=== PATIENT | male | born 1970 | race Caucasian/White ===

== ENCOUNTER → 2024-04-19 | Outpatient (CLI) | payer OTHER, SELFPAY ==
[2024-04-19 15:23] LABS: Absolute Lymphocyte Count 2.31 X10^3/uL (0.83-4.51); Basophil# 0.03 X10^3/uL; Basophil% 0.4 % (0-1); Eosinophil# 0.11 X10^3/uL; Eosinophils% 1.4 % (0-5); Hemoglobin 15.4 g/dL (13.0-16.5); Lymphocyte # 2.31 X10^3/ul (0.83-4.51); Lymphocyte % 28.8 % (19-41); Mean Corp Hgb Conc 34.2 g/dL (32-36); Mean Corpuscular Hgb 32.5 pg (27.0-32.0); Mean Corpuscular Volume 94.9 fL (80-94); Mean Platelet Vol. 8.9 fl (6.2-12.0); Monocyte# 0.53 X10^3/uL; Monocyte% 6.6 % (0-10); NRBC Flagged by Analyzer 0 % (0-5); Neutrophil # 5.01 X10^3/uL (2.7-7.7); Neutrophil % 62.6 % (47-70); Platelet Count 324 K/mm3 (150-450); RBC Distribution Width CV 11.7 % (11.6-14.6); RBC Distribution Width SD 40.7 fl (35.1-43.9); Red Blood Count 4.74 M/mm3 (4.6-6.2)
[2024-04-19 15:27] LABS: Erythrocyte Sedimentation Rate 3 mm/hr (0-20)
[2024-04-19 15:42] LABS: Urine Sodium 39 mmol/L (Not Establ.)
[2024-04-19 15:53] LABS: Vitamin B12 538 pg/mL (211-911)
[2024-04-19 15:59] LABS: CRP < 2.90 mg/L (0.0-3.0); Magnesium 2.1 mg/dL (1.6-2.6); Phosphorus 3.4 mg/dL (2.5-4.9)
[2024-04-19 16:41] LABS: Urine Chloride 48 mmol/L (Not Establ.); Urine Potassium 29.7 mmol/L (Not Establ.)
[2024-04-25 15:09] LABS: Anti-Centromere B Ab <0.2 AI (0.0-0.9); Anti-Chromatin <0.2 AI (0.0-0.9); Anti-Jo <0.2 AI (0.0-0.9); Anti-Scleroderma-70 AB <0.2 AI (0.0-0.9); Anti-dsDNA Ab <1 IU/mL (0-9); Beef <0.10 kU/L (Class 0); Chocolate <0.10 kU/L (Class 0); Codfish <0.10 kU/L (Class 0); Corn <0.10 kU/L (Class 0); Egg, Whole <0.10 kU/L (Class 0); Milk (Cow) <0.10 kU/L (Class 0); Mussels <0.10 kU/L (Class 0); Peanut <0.10 kU/L (Class 0); Pork <0.10 kU/L (Class 0); RNP Ab 0.2 AI (0.0-0.9); SJOGREN'S Anti-SS-A test < 0.2 AI (0.0-0.9); SJOGREN'S Anti-SS-B test < 0.2 AI (0.0-0.9); Salmon <0.10 kU/L (Class 0); Shrimp <0.10 kU/L (Class 0); Smith Ab <0.2 AI (0.0-0.9); Soybean <0.10 kU/L (Class 0); Tuna <0.10 kU/L (Class 0); Vitamin D 1,25-Dihydroxy 45.5 pg/mL (24.8-81.5); Wheat <0.10 kU/L (Class 0)
[2024-04-26 10:09] LABS: ACCA 16 units (0-90); ALCA 7 units (0-60); AMCA 4 units (0-100); Anti-Parietal Cell AB, QN 1.3 Units (0.0-20.0); Chromogranin A 148.4 ng/mL (0.0-101.8); Cytoplasmic Ab (C-ANCA) <1:20 titer (Neg:<1:20); Endomysial Antibody IgA Negative (Negative); Gastrin, Serum 66 pg/mL (0-115); Immunoglobulin A 278 mg/dL (90-386); Immunoglobulin E 92 IU/mL (6-495); Immunoglobulin G 863 mg/dL (603-1613); Immunoglobulin M 35 mg/dL (20-172); Intrinsic Factor Ab 1.1 AU/mL (0.0-1.1); Perinuclear Ab (P-ANCA) <1:20 titer (Neg:<1:20); gASCA 5 units (0-50); t-Transglutaminase IgA <2 U/mL (0-3)
== END | disposition home or self-care (01) ==
LOC: LAB 14:32
PROVIDERS: PCP Nurse Practitioner Family; Referring Provider Internal Medicine Gastroenterology; Visit Provider Internal Medicine Gastroenterology
DX: K21.9 Gastro-esophageal reflux disease without esophagitis (principal)
CPT/HCPCS: 36415; 82436; 82607; 82652; 82784; 82785; 82941; 83516; 83735; 84100; 84133; 84300; 85025; 85652; 86003; 86005; 86036; 86140; 86225; 86235; 86255; 86256; 86316; 86340; 86671

== ENCOUNTER 2024-05-22 11:57 | Day surgery (SDC) | payer OTHER, SELFPAY ==
[2024-05-22] VITALS (9 sets, daily range): BP systolic 100–132; BP diastolic 70–83; PULSE 71–90; RESP 16–20; TEMP 36.6–36.9; O2SAT 91–100; BMI 27.5
--- NOTE | 2024-05-22 | IMM_PTH ---
PATHOLOGY RESULTS PATIENT: MARLEN THURMAN LOC: EN U#:[id number] AGE/SX: 53/M ROOM: RE05/22/[address]: Dr. Fabián Degroot DO : 1970 BED: DIS: 05/22/2024 SPEC #: [id number] RECD: 05/24/24 10:40 STATUS: SOHAM REQ #: [id number] RONNA: 05/22/24 00:[address]: Fabián Degroot DEPT: IMMUNOHISTOCHEMISTRY RECD BY: Catarino Perdomo ENTERED: 05/24/24 10:41 SP TYPE: IMMUNO OTHR DR: Arabella Guidry, RODEO RIDER-C Tissues: Esophagus, NOS Procedures: P53 (initial) KI-67 (add) PHYSICIAN & INSTITUTION [place] [address] SPECIMEN INFORMATION: Tissue Source: Distal esophagus biopsy Clinical Info: GERD Specimen Number: [id number] CPT code: 48528,90676 METHODOLOGY: Deparaffinized sections of prefer/formalin-fixed tissue or PAP/DQ stained slides are incubated with monoclonal/polyclonal antibodies/oligonucleotide probes. Localization is made via biotin free immunoperoxidase method. Appropriate controls are performed and reacted as expected. Results on target cell population are indicated in the following table: RESULTS: ANTIBODY / CLONE RESULT P53 (DO-7) positive, wild type Ki-67 (30-9) positive, low These tests were developed and their performance characteristics determined by [facility]. They may not have been cleared or approved by the [place]. Food and Drug Administration. The FDA has determined that such clearance or approval is not necessary. The above immunohistochemical/dualISH markers are ordered and reviewed by the Pathologist. INTERPRETATION: Distal esophagus, biopsy: No evidence of dysplasia. 05/24/2024
--- NOTE | 2024-05-22 12:52 | PRE.ANES_ITS ---
ASA Classification* ASA Classification ASA Classification: 2 Assessment & Plan Anesthesia* Anesthesia Assessment Anesthesia Assessment: Discussed sedation and/or anesthesia options, risks, benefits, and alternatives with patient/parents/legal guardian/POA. Questions invited. The patient/parents/legal guardian/POA seems to understand and agrees to proceed with anesthesia plan. Reviewed the physical assessment, medical history, allergy history and patient home medications list prior to surgery/procedure/anesthetic and documented any changes. Performed airway and anesthesia risk assessments. Anesthesia Type Anesthesia Type: MAC History Source History Obtained from:: Patient and Chart Anesthesia Focused Assessment* Temperature: 97.8 F Pulse Rate: 77 Blood Pressure: 132/83 Respiratory Rate: 18 Pulse Ox: 100 Oxygen Delivery Method: Room Air Airway Assessment Mouth opens: >3 cm Mallampati Score: I Teeth Condition: Partial (Patient has UPPER partial. He will take it out.) Neck Range of motion (ROM): Full ROM Focused Labs Anesthesia Preop lab: CBC WBC 8.0 K/mm3 (4.4-11.0) 04/19/24 14:36 RBC 4.74 M/mm3 (4.6-6.2) 04/19/24 14:36 Hgb 15.4 g/dL (13.0-16.5) 04/19/24 14:36 Hct 45.0 % (40-54) 04/19/24 14:36 Plt Count 324 K/mm3 (150-450) 04/19/24 14:36 CHEMISTRY Potassium 3.9 mmol/L (3.5-5.1) 07/08/15 13:20 Sodium 141 mmol/L (136-145) 07/08/15 13:20 Magnesium 2.1 mg/dL (1.6-2.6) 04/19/24 14:36 Phosphorus 3.4 mg/dL (2.5-4.9) 04/19/24 14:36 BUN 12 mg/dL (7-18) 07/08/15 13:20 Creatinine 1.09 mg/dL (0.70-1.30) 07/08/15 13:20 Glucose 113 mg/dL (70-110) H 07/08/15 13:20 COAG Pre-Assessment Diagnosis/Proposed Procedure Planned Operative Procedure(s): EGD W/ PH PROBE Anesthesia History Anesthesia History - patient registration representative: Anesthesia History - patient registration representative Hx Hospitalization No 04/29/24 12:44 Any Problems With Anesthesia No 04/29/24 12:44 Cholinesterase deficiency No 04/29/24 12:44 You/Your Family Experience fever (hyperthermia) with Relationship Recent Exposure to Contagious No 05/22/24 12:32 Disease Does patient have nerve No 04/29/24 12:44 stimulator Patient instructed to have device shut off --Does patient have Pacemaker No 05/22/24 12:32 or ICD? When Was Last Pacemaker Check QUESTION #4 FULL TEXT: You/Your Family Experience fever (hyperthermia) with Anesthesia Last Oral Intake Last Oral intake: Last Oral Intake NPO since Meds taken in AM with sips of water? Meds patient instructed to take am of surgery Any additional information?: Yes NPO since: 00:00 Meds taken in AM with sips of water?: Yes Meds patient instructed to take am of surgery: duloxitine PONV PONV - patient registration representative: PONV - patient registration representative Female No 04/29/24 12:44 HX of Motion Sickness No 04/29/24 12:44 HX of N/V After Surgery No 04/29/24 12:44 Non-Smoker Yes 04/29/24 12:44 Duration of Surgery greater No 04/29/24 12:44 than 60 minutes Number of Risk Factors 1 04/29/24 12:44 PONV Score Low Risk 04/29/24 12:44 Height & Weight Height & Weight: Anesthesia: Height & Weight Height 6 ft 05/22/24 12:32 Weight: 92 kg 05/22/24 12:32 Body Mass Index (BMI) 27.5 05/22/24 12:32 Respiratory Assessment Respiratory Assessment - patient registration representative: Respiratory Tract Infection Hx - patient registration representative Hx Respiratory Tract Infection No 04/29/24 12:44 STOP Sleep Apnea STOP Sleep Apnea - patient registration representative: STOP Sleep Apnea - patient registration representative Hx Hypertension Yes: CONTROLLED ON MED 04/29/24 12:44 Hx Sleep Apnea Yes 04/29/24 12:44 CPAP Yes 04/29/24 12:44 BIPAP No 04/29/24 12:44 Do you snore loudly (louder than talking or can be heard Do you often feel tired/ fatigued/ sleepy during daytime? Has anyone observed you stop breathing during sleep? STOP Results Positive 04/29/24 12:44 QUESTION #5 FULL TEXT : Do you snore loudly (louder than talking or can be heard through closed doors)? Tobacco Use History Tobacco Use History - patient registration representative: Tobacco Use History - patient registration representative Tobacco Use Smoking Status Former smoker 04/29/24 12:44 Hx Tobacco Use No 04/29/24 12:44 Years Smoking Packs Smoked per Day Smoking Cessation Date was Yes - quit smoking within 15 04/29/24 12:44 within the last 15 years years Hx Smoking Cessation Date Hx Smoking Cessation Counseling Hematologic Medial History Hematologic Hx - patient registration representative: Hematologic Medical Hx - contract specialist Hx of Blood Transfusion Yes 04/29/24 12:44 Hx of Transfusion in last 3 No 04/29/24 12:44 Months Date of Last Transfusion (if within last 3 months) Ever experience any problems No 04/29/24 12:44 with transfusion(s)? Specify any problems Hx of Preganancy in last 3 N/A 04/29/24 12:44 Months Nurse Filling Out Transfusion VCHRISTIN 04/29/24 12:44 & Questions: Date: 04/29/24 04/29/24 12:44 Time: 12:45 04/29/24 12:44 Patient unable to answer at this time (ie. confused, unrespo /Reproduction History /Reproductive History - patient registration representative: /Reproductive Hx- patient registration representative Hx Now Gestational Age (in weeks): EDC: Hx Hx Para Hx Section SAB PFSH Medical History Wears partial dentures Wears glasses Depression Anxiety Alcohol use High cholesterol Back pain Injury of back History of ulceration Gastric reflux Former smoker CPAP (continuous positive airway pressure) dependence Sleep apnea Asthma Hypertension History of echocardiogram History of stress test Cardiology follow-up encounter COVID-19 Essential hypertension Over weight Hyperlipidemia Positional sleep apnea Environmental and seasonal allergies Allergy-induced asthma Ontiveros's esophagus without dysplasia Ontiveros's esophagus determined by biopsy Chest tightness Hematuria, microscopic Excessive sweating Pre-diabetes Nodule of right lung Exertional shortness of breath Atypical chest pain Home Medications ?Medication ?Instructions ?Recorded ?Last Taken ?Type albuterol sulfate 90 mcg/actuation 2 puff inhalation Q4H PRN 09/08/22 Unknown History aerosol inhaler (Proventil HFA) shortness of breath or wheezing atorvastatin 10 mg tablet 10 mg PO DAILY 09/08/22 Unknown History autopap OTHER 09/08/22 Unknown History cyanocobalamin (vitamin B-12) 500 500 mcg PO DAILY 09/08/22 Unknown History mcg tablet losartan 100 mg tablet 100 mg PO DAILY 09/08/22 Unknown History multivitamin 1 tab PO DAILY 09/08/22 Unknown History amlodipine 2.5 mg tablet 2.5 mg PO DAILY 03/28/24 Unknown History magnesium oxide 400 mg (241.3 mg 400 mg PO BID 03/28/24 Unknown History magnesium) tablet potassium chloride 20 mEq 20 meq PO DAILY 03/28/24 Unknown History tablet,extended release fluoxetine 10 mg capsule 15 mg PO QDAY 04/19/24 05/22/24 History cholecalciferol (vitamin D3) 25 25 mcg PO DAILY 04/29/24 Unknown History mcg (1,000 unit) capsule (Vitamin D3) fluticasone 232 mcg-salmeterol 14 1 inh inhalation BID 04/29/24 Unknown History mcg/actuation breath activated powdr pantoprazole 20 mg tablet,delayed 20 mg PO DAILY 04/29/24 05/16/24 History release vitamin E 268 mg (400 unit) capsule 268 mg PO DAILY 04/29/24 Unknown History Allergy/AdvReac Type Severity Reaction Status Date / Time shrimp Allergy Unknown Other Verified 05/22/24 12:09 codeine AdvReac Other Verified 05/22/24 12:09 lisinopril AdvReac cough Verified 05/22/24 12:09 Family History Grandmother Heart disease Grandfather Heart disease Father Hypertension Cancer Brother Asthma Mother Diabetes Colon cancer Sister Cancer Brother Cancer Surgical History History of lumpectomy History of back surgery History of vocal cord polypectomy H/O epididymectomy Scrotal hematoma Social History Smoking Status: Former smoker alcohol intake: current alcohol intake frequency: holidays/special occasions only substance use type: does not use caffeine: Yes Type: carbonated beverages and coffee Addt'l Information Additional Findings: Patient is occasionally slow to wake up from anesthesia. Review of Systems (Anesthesia) ROS Narrative System reviewed and no additional complaints, except as documented.
--- OUTSIDE RECORDS SUMMARY | 2024-05-22 12:56 | XMS RPT_ITS | CCD ---
Author Organization [facility] CliniSytn Care Team Providers Care Taxonomist Name Role Phone SELF, SELF Referring Unavailable LIANNA MALLORY Attending Unavailable PAULO, ARABELLA Consulting Unavailable PAULO, ARABELLA Admitting Unavailable PAULO, ARABELLA Attending Unavailable PAULO, ARABELLA Primary Care Unavailable PROVIDER, UNKNOWN Consulting Unavailable PAULO, ARABELLA Attending Unavailable PAULO, ARABELLA Admitting Unavailable PAULO, ARABELLA Consulting Unavailable PAULO, ARABELLA Primary Care Unavailable PROVIDER, UNKNOWN Consulting Unavailable PAULO, ARABELLA Attending Unavailable PAULO, ARABELLA Admitting Unavailable PAULO, ARABELLA Consulting Unavailable PALUO, ARABELLA Primary Care Unavailable PROVIDER, UNKNOWN Consulting Unavailable PAULO, ARABELLA Consulting Unavailable PAULO, ARABELLA Admitting Unavailable PAULO, ARABELLA Primary Care Unavailable PAULO, ARABELLA Attending Unavailable PROVIDER, UNKNOWN Consulting Unavailable PAULO, ARABELLA Consulting Unavailable PAULO, ARABELLA Admitting Unavailable PAULO, ARABELLA Attending Unavailable PAULO, ARABELLA Primary Care Unavailable PROVIDER, UNKNOWN Consulting Unavailable MONIQUE REA Attending Unavailable RONA, MONIQUE Admitting Unavailable PAULO, ARABELLA Consulting Unavailable VIVIANE HERNANDEZ DO Referring Unavailable REA, MOINQUE Primary Care Unavailable PROVIDER, UNKNOWN Consulting Unavailable PAULO, ARABELLA Attending Unavailable PAULO, ARABELLA Consulting Unavailable PAULO, ARABELLA Admitting Unavailable PAULO, ARABELLA Primary Care Unavailable PROVIDER, UNKNOWN Consulting Unavailable PATTI SUKHWINDER T Attending Unavailable PATTI, SUKHWINDER T Admitting Unavailable PAULO, ARABELLA Consulting Unavailable PATTI, SUKHWINDER T Primary Care Unavailable PROVIDER, UNKNOWN Consulting Unavailable PAULO, ARABELLA Consulting Unavailable АНДРЕЙ DICKEY MD Attending Unavailable АНДРЕЙ DICKEY MD Admitting Unavailable PAULO, ARABELLA Referring Unavailable АНДРЕЙ DICKEY MD Primary Care Unavailable PROVIDER, UNKNOWN Consulting Unavailable FRIEND, TAVO Admitting Unavailable FRIEND, TAVO Primary Care Unavailable PAULO, ARABELLA Consulting Unavailable FRIEND, TAVO Attending Unavailable PROVIDER, UNKNOWN Consulting Unavailable PAULO, ARABELLA Consulting Unavailable PAUOL, ARABELLA Attending Unavailable PAULO, ARABELLA Admitting Unavailable PAULO, ARABELLA Primary Care Unavailable PROVIDER, UNKNOWN Consulting Unavailable PAULO, ARABELLA Consulting Unavailable PAULO, ARABELLA Attending Unavailable PAULO, ARABELLA Admitting Unavailable PAULO, ARABELLA Primary Care Unavailable PROVIDER, UNKNOWN Consulting Unavailable PAULO, ARABELLA Attending Unavailable PAULO, ARABELLA Admitting Unavailable PAULO, ARABELLA Consulting Unavailable PAULO, ARABELLA Primary Care Unavailable PROVIDER, UNKNOWN Consulting Unavailable PAULO, ARABELLA Attending Unavailable PAULO, ARABELLA Admitting Unavailable PAULO, ARABELLA Consulting Unavailable PAULO, ARABELLA Primary Care Unavailable PROVIDER, UNKNOWN Consulting Unavailable PAULO, ARABELLA Consulting Unavailable PAULO, ARABELLA Admitting Unavailable PAULO, ARABELLA Primary Care Unavailable PAULO, ARABELLA Attending Unavailable PROVIDER, UNKNOWN Consulting Unavailable PAULO, ARABELLA Attending Unavailable PAULO, ARABELLA Admitting Unavailable PAULO, ARABELLA Consulting Unavailable PAULO, ARABELLA Primary Care Unavailable PROVIDER, UNKNOWN Consulting Unavailable PAULO, ARABELLA Consulting Unavailable PAULO, ARABELLA Admitting Unavailable PAULO, ARABELLA Primary Care Unavailable PAULO, ARABELLA Attending Unavailable PROVIDER, UNKNOWN Consulting Unavailable PAULO, ARABELLA Consulting Unavailable PUALO, ARABELLA Admitting Unavailable PAULO, ARABELLA Attending Unavailable PAULO, ARABELLA Primary Care Unavailable PROVIDER, UNKNOWN Consulting Unavailable Allergies Allergy Classification Reported Allergen(s) Allergy Type Date of Onset Reaction(s) Facility (1 source) Codeine Drug Allergy [facility] Repository (1 source) Shrimp product; Translations: [SHRIMP] Food allergy (disorder) [facility] Repository Problems Active Problems Problem Classification Problem Date Documented Da te Episodic/Chronic Disorders of lipid metabolism (1 source) Hyperlipidemia, unspecified; Translations: [Hyperlipidemia, unspecified] Onset: 12-29-2023 Chronic Esophageal disorders (4 sources) Ontiveros's esophagus without dysplasia; Translations: [Ontiveros's esophagus without dysplasia] Onset: 03-02-2024 Chronic Essential hypertension (1 source) Essential (primary) hypertension; Translations: [Essential (primary) hypertension] Onset: 04-08-2024 Chronic Fluid and electrolyte disorders (4 sources) Hypokalemia; Translations: [Hypokalemia] Onset: 03-07-2024 Episodic Malaise and fatigue (3 sources) Other fatigue; Translations: [Other fatigue] Onset: 04-08-2024 Episodic Other aftercare (4 sources) Other longterm (current) drug therapy; Translations: [Other longterm (current) drug therapy] Onset: 03-01-2024 Episodic Other connective tissue disease (1 source) Cramp and spasm; Translations: [Cramp and spasm] Onset: 04-08-2024 Episodic Other lower respiratory disease (1 source) Shortness of breath; Translations: [Shortness of breath] Onset: 04-08-2024 Episodic Other nutritional; endocrine; and metabolic disorders (4 sources) Hypomagnesemia; Translations: [Hypomagnesemia] Onset: 03-07-2024 Chronic Other screening for suspected conditions (not mental disorders or infectious disease) (5 sources) Encounter for screening for nutritional disorder; Translations: [Encounter for screening for malignant neoplasm of prostate] Onset: 12-29-2023 Episodic Residual codes; unclassified (2 sources) Family history of carrier of genetic disease; Translations: [Family history of carrier of genetic disease] Onset: 06-13-2023 Episodic Unclassified (1 source) Other specified cough; Translations: [Other specified cough] Onset: 04-08-2024 Past or Other Problems Problem Classification Problem Date Documented Da te Episodic/Chronic Diabetes mellitus without complication (1 source) Prediabetes; Translations: [Prediabetes] Onset: 12-29-2023 Episodic Results Test Name Value Interpretation Reference Range Facility CATECHOLAMINES,FRACTIONATED, URINE [CCL]on 05-20-2024 Catecholamines, UrineInterp See Note Normal [facility] Comment on above: Result Comment: TEST INFORMATION: Catecholamines Fractionated, Urine Free Smaller increases in catecholamine concentrations (less than two times the upper limit) usually are the result of physiological stimuli, drugs, or improper specimen collection. Significant elevation of one or more catecholamines (three or more times the upper reference limit) is associated with an increased probability of a neuroendocrine tumor. Access complete set of age- and/or gender-specific reference intervals for this test in the [employer] [facility] Test Directory ([employer]). This test was developed and its performance characteristics determined by [facility]. It has not been cleared or approved by the US Food and Drug Administration. This test was performed in a CLIA certified laboratory and [place] [address] Paramjit Smith III, M.D. [id number] Performed By: #### 2 93218 #### [facility],[address] [place], [place] [address] Creatinine Ur, per 24h 2010 mg/d Normal 800-2100 [facility] Comment on above: Result Comment: Perf ormed By: [facility] [address] [place] [address] Aggregate Conveyor Operator: Arun Bowman MD, PhD IA Number: [id number] Performed By: #### 2 08892 #### [facility],[address] [place] [address]5984 Creatinine Ur, per volume 67 mg/dL Normal [facility] Comment on above: Performed By: #### 2 10881 #### [facility],[address] [place] [address] 68996 Dopamine, Urine per 24hour 54 ug/d Low 71-485 [facility] Comment on above: Result Comment: REFE RENCE INTERVAL: Dopamine, Urine - ug/d Access complete set of age- and/or gender-specific reference intervals for this test in the [employer] [facility] Test Directory ([employer]). Performed By: #### 2 64067 #### [facility],[address] [place] [address] 95845 Dopamine, Urine pervolume 18 ug/L Normal [facility] Comment on above: Performed By: #### 2 40263 #### [facility],[address] [place] [address] 73540 Dopamine, Urine ratio toCRT 27 ug/g AUDIO VISUAL COLLECTIONS COORDINATOR Normal 0-250 [facility] Comment on above: Performed By: #### 2 15393 #### [facility],[address] [place] [address] 14174 Epinephrine, Urine wye20um <3 Normal 1-14 [facility] Comment on above: Result Comment: REFE RENCE INTERVAL: Epinephrine, Urine - ug/d Access complete set of age- and/or gender-specific reference intervals for this test in the [employer] [facility] Test Directory ([employer]). Performed By: #### 2 71089 #### [facility],[address] [place] [address] 00527 Epinephrine, Urine pervolume <1 Normal [facility] Comment on above: Performed By: #### 2 67756 #### [facility],[address] [place] [address] 64240 Epinephrine, Urine ratioto AUDIO VISUAL COLLECTIONS COORDINATOR <1 Normal 0-20 [facility] Comment on above: Performed By: #### 2 03956 #### [facility],[address] [place] [address] Hours Collected 24 hr Normal [facility] Comment on above: Result Comment: Per 24h calculations are provided to aid interpretation for collections with a duration of 24 hours and an average daily urine volume. For specimens with notable deviations in collection time or volume, ratios of analytes to a corresponding urine creatinine concentration may assist in result interpretation. Performed By: #### 2 82388 #### [facility],[address] [place] [address] Norepinephrine, Urineper 24hr 30 ug/d Normal 14-120 [facility] Comment on above: Result Comment: REFE RENCE INTERVAL: Norepinephrine, Urine - ug/d Access complete set of age- and/or gender-specific reference intervals for this test in the [employer] [facility] Test Directory ([employer]). Performed By: #### 2 73653 #### [facility],[address] [place], [place] [address] Norepinephrine, Urineper volume 10 ug/L Normal [facility] Comment on above: Performed By: #### 2 38072 #### [facility],[address] [place], [place] [address] Norepinephrine, Urineratio to AUDIO VISUAL COLLECTIONS COORDINATOR 15 ug/g AUDIO VISUAL COLLECTIONS COORDINATOR Normal 0-45 [facility] Comment on above: Performed By: #### 2 64220 #### [facility],[address] [place], [place] [address] Total Volume 3000 mL Normal [facility] Comment on above: Performed By: #### 2 55652 #### [facility],[address] [place], [place] [address] OPERATIVE PROCEDURESon 10-10 -2024 OPERATIVE PROCEDURES [facility] OPERATIVE REPORT NAME ACCOUNT SEX AGE ADMIT DISCHARGE PT MED. RECORD# NUMBER DATE DATE TYPE GUY POTTS [id number] M 53 05/06/24 2 [id number] ROOM: [facility] DATE OF : 1970 DICTATING PHYSICIAN: Monique Rea DATE OF SURGERY: May 06, 2024 SURGEON: Monique Rea MD PRINCIPAL ARCHITECT: Anton Michaels, Magnetic Tester ANESTHESIOLOGIST: Yesenia Denson CRNA ANESTHETIC: Local anesthesia, 35 mL of 0.25% Marcaine with epinephrine. PREOPERATIVE DIAGNOSIS: POSTOPERATIVE DIAGNOSIS: Acute appendicitis and adhesions. OPERATION PERFORMED: COMPLICATIONS: ESTIMATED BLOOD LOSS: 5 mL. FLUIDS GIVEN: 1300 mL of crystalloid. SPECIMEN: Vermiform appendix, sent to Pathology. DISPOSITION: Stable to recovery. INDICATIONS: Guy Potts is a 53-year-old gentleman [facility], and on physical exam he has peritoneal signs. Laboratory evaluation shows a white blood cell count elevation with a left shift on differential, and CT showed what appeared to be appendicitis. DESCRIPTION OF OPERATION: After informed consent, intravenous fluids, and antibiotics, he was brought to the operating room, placed on the table in the supine position with adequate padding at pressure points. The patient was given anesthesia, prepped and draped in the usual sterile fashion. The abdomen was palpated, demarcated, and locally anesthetized at the trocar sites, and Page 1 of 2 GUY POTTS Operative Report GUY POTTS : 1970 then placed into mild Trendelenburg and rotated to the left. The infraumbilical trocar was placed with good visualization. The suprapubic and left lower quadrant trocars were placed with good visualization through the anesthetized sites. The area of the vermiform appendix was markedly edematous, erythematous, indurated, and there was some fibrinous exudate in this area, but I could not find any signs of leakage. This area was copiously irrigated with warm antibiotic solution, and then the base of the vermiform appendix grasped, and this area was elevated. Then the mesoappendiceal vessels were exposed. Additional adhesions were lysed around this area, and eventually the base of the vermiform appendix was exposed, cross-clamped, held for 1 minute and then the stapling/cutting device was fired. This transected the base of the vermiform appendix nicely. Then, the mesoappendiceal vessels were placed with multiple positioning into the stapling/cutting device, which was clamped, held for 1 minute with each stapling session, and then fired, and there was good hemostasis. The vermiform appendix was placed in an EndoCatch bag and placed to the side. The area around the vermiform appendix was carefully irrigated with antibiotic solution, suctioned, and checked for good hemostasis. The EndoCatch bag was removed through the infraumbilical port, the trocar repositioned, and the appendiceal site irrigated with antibiotic solution, checked for excellent hemostasis, and the cul-de-sac was suctioned and irrigated with antibiotic solution as well. After suctioning the irrigant and checking for good hemostasis, the trocars were removed with good visualization. The infraumbilical fascial edges were nicely approximated with #1 Vicryl, the deeper layers approximated with inverted interrupted #1 Vicryl. Skin edges were all nicely approximated with inverted interrupted 2-0 PDS through subcutaneous and subcuticular layers followed by Benzoin, Steri-Strips, and sterile dressings. When the patient was more awake and alert, he was sent to the recovery room in good condition. The case will be discussed with the patient and his spouse when he is more awake and alert. Pathology will be followed in my office. Dictated By: Monique Rea MD 05/06/24 14:16 JOB #: [id number] Transcribed By: am 05/06/24 14:55 Electronically signed by: E-Sign Dr. Monique Rea MD 05/09/24 21:28 Page 2 of 2 GUY POTTS Operative Report Normal [facility] Final Surgical Pathology Rep [facility] 05-08-2024 Final Surgical Pathology Report . Pathology Reports Accession: Collected Date/Time: Received Date/Time: Pathologist: [id number] 05/06/2024 12:30 EDT 05/07/2024 09:24 EDT AILEEN GRAY MD Final Surgical Pathology Report DIAGNOSIS: APPENDIX: - ACUTE APPENDICITIS WITH SEROSITIS COMMENT: [facility] [id number] CLINICAL INFORMATION: ACUTE APPENDICITIS SPECIMEN: A APPENDIX GROSS DESCRIPTION: All parts labelled with patient name and [id number] Received in formalin labelled appendix Dimensions- 8.5 x 2.8 x 1.6 cm Serosal surface- is lópez-pink with vascular congestion, jovel-white exudate and attached yellow mesoappendix Lumen- contains hemorrhagic material, fecaliths also identified. Section closest to margin inked black Wall thickness- 0.1 to 0.2 cm. RS-1 Janell Jennings, Grossing Meter Readers Supervisor/ Dr. Jorge Wills, Pathologist Performed by Janell Jennings MICROSCOPIC DESCRIPTION: The microscopic examination is performed, except in the case of Gross Only. Electronically Signed by Pathology Report verified by [facility] AILEEN GRAY Sign out Date: 05/08/2024 09:58 Performing Lab: [facility], [address] [place] [address] Pathology Dept Disclaimer If ancillary studies were utilized, the following Laboratory Developed Test (LDT) disclaimer will apply: Under CLIA requirements, [facility] Pathology Laboratory is qualified to perform high complexity testing. For all ancillary stains, positive and negative controls stain appropriately. Performance characteristics of immunohistochemical and chromogenic in-situ hybridization tests have been determined by [facility] Pathology Laboratory. These tests are used for clinical purposes, They should not be regarded as investigational or for research. Normal [facility] C-REACTIVE PROTEINon 024 CRP 3.37 mg/dl High 0.00 - 0.90 [facility] Comment on above: Performed By: #### 2 56017 #### [facility],[address] [place] [address] 30182 CBC + DIFFon 05-06-2024 Baso # 0.03 x10EE3/UL Normal 0.00 - 0.10 [facility] Comment on above: Performed By: #### 2 48520 #### [facility],[address] [place] [address] 59028 Basophils/100 WBC (Bld) 0.2 % Normal 0.0 - 2.0 [facility] Comment on above: Performed By: #### 2 16645 #### [facility],[address] [place] [address] 04396 CBC + DIFF Normal [facility] Comment on above: Result Comment: CBC- COMPLETE BLOOD COUNT Performed By: #### 2 66494 #### [address] [address] EO # 0.06 x10EE3/UL Normal 0.00 - 0.50 [facility] Comment on above: Performed By: #### 2 71204 #### [place] [address] Eosinophils/100 WBC (Bld) 0.4 % Normal 0.0 - 7.0 [facility] Comment on above: Performed By: #### 2 15734 #### [place] [address] Erythrocyte distribution width (RBC) [Ratio] 12.3 % Normal 12.0 - 15.6 [facility] Comment on above: Performed By: #### 2 11126 #### [place] [address] Hematocrit (Bld) [Volume fraction] 44.0 % Normal 40.0 - 52.0 [facility] Comment on above: Performed By: #### 2 12237 #### [place] [address] Hemoglobin (Bld) [Mass/Vol] 15.3 g/dL Normal 13.0 - 17.5 [facility] Comment on above: Performed By: #### 2 69271 #### [place] [id number] Lymph # 1.04 x10EE3/UL Normal 0.80 - 2.80 [facility] Comment on above: Performed By: #### 2 18580 #### [place] [id number] Lymphocytes/100 WBC (Bld) 7.0 % Low 20.0 - 45.0 [facility] Comment on above: Performed By: #### 2 49477 #### [address],[place] [address] MANUAL DIFF N/A Normal [facility] Comment on above: Performed By: #### 2 74584 #### [facility],[address] [place] [address] MCH (RBC) [Entitic mass] 33 pg Normal 27 - 33 [facility] Comment on above: Performed By: #### 2 41616 #### [facility],[address] [place] [address] MCHC 35 X10 3 Normal 32 - 36 [facility] Comment on above: Performed By: #### 2 35692 #### [place] [address] MCV (RBC) [Entitic vol] 95 fL Normal 81 - 98 [facility] Comment on above: Performed By: #### 2 45759 #### [facility],[address] [place] [address] Real # 0.89 x10EE3/UL Normal 0.20 - 1.00 [facility] Comment on above: Performed By: #### 2 19635 #### [facility],[address] [place] [address] MONOS % 6.0 % Normal 0.0 - 10.0 [facility] Comment on above: Performed By: #### 2 32788 #### [facility],[address] [place] [address] Morphology Gamal (Bld) [Interp] N/A Normal [facility] Comment on above: Performed By: #### 2 17138 #### [place] [address] Neut # 12.87 x10EE3/UL High 1.50 - 7.10 [facility] Comment on above: Performed By: #### 2 69234 #### [place] [address] Neutrophils/100 WBC (Bld) 86.4 % High 46.0 - 76.0 [facility] Comment on above: Performed By: #### 2 87453 #### [facility],[address] [place] [address] 02766 PLATELET 323 x10EE3/UL Normal 150 - 450 [facility] Comment on above: Performed By: #### 2 78762 #### [facility],[address] [place] [address] 63106 Platelet mean volume (Bld) [Entitic vol] 7.3 fL Normal 6.4 - 10.5 [facility] Comment on above: Result Comment: AUTO MATED DIFFERENTIAL Performed By: #### 2 41098 #### [facility],[address] [place] [address] 29687 RBC 4.62 x 10EE6/UL Normal 4.50 - 6.00 [facility] Comment on above: Performed By: #### 2 18860 #### [facility],[address] [place] [address] 62664 WBC 14.9 x 10EE3/UL High 4.5 - 10.8 [facility] Comment on above: Performed By: #### 2 31324 #### [facility],[address] [place] [address] 89860 CMP with eGFRon 05-06-2024 AGE 53 years Normal [facility] Comment on above: Performed By: #### 2 57661 #### [facility],[address] [place] [address] 98314 Albumin [Mass/Vol] 3.9 g/dL Normal 3.4 - 5.0 [facility] Comment on above: Performed By: #### 2 02758 #### [facility],[address] [place] [address] 25308 Albumin/Globulin [Mass ratio] 1.0 {ratio} Normal 0.9 - 1.6 [facility] Comment on above: Performed By: #### 2 21623 #### [facility],[address] [place] [address] 28300 ALK PHOS 89 U/L Normal 46 - 116 [facility] Comment on above: Performed By: #### 2 07127 #### [facility],[address] [place] [address] 20019 ALT [Catalytic activity/Vol] 38 U/L Normal 16 - 63 [facility] Comment on above: Performed By: #### 2 40833 #### [facility],[address] [place] [address] 57186 Anion gap [Moles/Vol] 14 mmol/L Normal 10 - 20 [facility] Comment on above: Performed By: #### 2 72874 #### [facility],[address] [place] [address] 37587 AST [Catalytic activity/Vol] 25 U/L Normal 15 - 37 [facility] Comment on above: Performed By: #### 2 88734 #### [facility],[address] [place] [address] 38451 B/C RATIO 13 ratio Normal 0 - 30 [facility] Comment on above: Performed By: #### 2 42529 #### [facility],[address] [place] [address] 12579 Bilirubin [Mass/Vol] 0.6 mg/dL Normal 0.2 - 1.0 [facility] Comment on above: Performed By: #### 2 39864 #### [facility],[address] [place] [address] 66389 Calcium [Mass/Vol] 9.7 mg/dL Normal 8.5 - 10.1 [facility] Comment on above: Performed By: #### 2 12778 #### [facility],[address] [place] [address] 74373 Chloride [Moles/Vol] 103 mmol/L Normal 98 - 107 [facility] Comment on above: Performed By: #### 2 09314 #### [facility],[address] [place] [address] 47987 CMP with eGFR Normal [facility] Comment on above: Result Comment: COMP REHENSIVE METABOLIC PANEL Performed By: #### 2 20061 #### [facility],[address] [place] [address] 24635 CO2 [Moles/Vol] 28.2 mmol/L Normal 21.0 - 32.0 [facility] Comment on above: Performed By: #### 2 62319 #### [facility],[address] [place] [address] Creatinine [Mass/Vol] 1.17 mg/dL Normal 0.70 - 1.30 [facility] Comment on above: Performed By: #### 2 32792 #### [facility],[address] [place] [address] GFR/1.73 sq M.predicted among non-blacks MDRD (S/P/Bld) [Vol rate/Area] mL/min/{1.73_m2} Normal 60 - 999 [facility] Comment on above: Performed By: #### 2 99018 #### [facility],[address] [place] [address] Result Comment: ACCO RDING TO THE NATIONAL KIDNEY DISEASE EDUCATION PROGRAM(NKDE), A NORMAL eGFR IS A VALUE GREATER THAN OR EQUAL TO 60 ML/MIN/1.73 SQ METERS. CHRONIC KIDNEY DISEASE: <60mL/MIN/1.73 SQ METERS KIDNEY FAILURE: <15mL/MIN/1.73 SQ METERS THIS TEST SHOULD ONLY BE USED FOR PATIENTS 18 YEARS OF AGE AND OLDER. Globulin (S) [Mass/Vol] 3.9 g/dL High 1.5 - 3.8 [facility] Comment on above: Performed By: #### 2 51637 #### [facility],[address] [place] [address] 51201 Glucose [Mass/Vol] 151 mg/dL High 74 - 106 [facility] Comment on above: Performed By: #### 2 00838 #### [facility],[address] [place] [address] 23750 Potassium [Moles/Vol] 4.0 mmol/L Normal 3.5 - 5.1 [facility] Comment on above: Performed By: #### 2 79594 #### [facility],[address] [place] [address] 13265 Protein [Mass/Vol] 7.8 g/dL Normal 6.4 - 8.2 [facility] Comment on above: Performed By: #### 2 26591 #### [facility],[address] [place] [address] 85753 Sodium [Moles/Vol] 141 mmol/L Normal 136 - 145 [facility] Comment on above: Performed By: #### 2 10351 #### [facility],[address] [place] [address] 01285 Urea nitrogen [Mass/Vol] 15 mg/dL Normal 7 - 18 [facility] Comment on above: Performed By: #### 2 23308 #### [facility],[address] [place] [address] ABDOMEN/PELVIS [facility] 2023 CT ABDOMEN/PELVIS [place] [address] Patient: GUY POTTS Phone#: : 1970 Age: 53 Gender: M Pt. Type: ER Account: [id number] Location: [facility] Ordering: VIVIANE HERNANDEZ Exam Date: 05/06/2024/6:36 Family Phys: ARABELLA BATES Charge Code: [id number] Physician: Big Stone Order #: [id number] Dose#: 16.4 PROCEDURE: CT ABDOMEN/PELVIS WITH CONTRAST COMPARISON: None. INDICATIONS: ABDOMEN PAIN TECHNIQUE: After obtaining the patient's consent, CT images were created with non-ionic intravenous contrast material. All CT scans at this facility use dose modulation, iterative reconstruction, and/or weight based dosing when appropriate to reduce radiation dose to as low as reasonably achievable. IV CONTRAST: Omnipaque 350,80ml TOTAL DOSE: 16.4 CTDIvol(mGy) FINDINGS: LIVER: Normal. No enlargement, atrophy, abnormal density, or significant focal lesion. BILIARY: Gallbladder is present PANCREAS: Normal. No lesion, fluid collection, ductal dilatation, or atrophy. SPLEEN: Normal. No enlargement or focal lesion. KIDNEYS: Kidneys enhance and excrete contrast symmetrically. No hydronephrosis. ADRENALS: Normal. No mass or enlargement. AORTA/VASCULAR: No aortic aneurysm. There are atherosclerotic calcifications of the aorta and branch vessels. RETROPERITONEUM: Normal. No mass or adenopathy. BOWEL/MESENTERY: No bowel obstruction or dilatation. No significant stool burden. There is periappendiceal stranding. There are 2 stones within the appendix. The appendix measures up to 1.3 cm. Findings consistent with acute appendicitis. No loculated fluid collection. No free air. ABDOMINAL WALL: Fat containing umbilical hernia. Fat containing bilateral inguinal hernias. URINARY BLADDER: Fluid-filled PELVIC NODES: Normal. No adenopathy. PELVIC ORGANS: Calcifications in the prostate BONES: Disc height loss L4-5. Continued Report - Page 2 of 2 Patient: GUY POTTS Phone#: : 1970 Age: 53 Gender: M Pt. Type: ER Account: [id number] Location: [facility] Ordering: VIVIANE HERNANDEZ Exam Date: 05/06/2024/6:36 Family Phys: ARABELLA BATES Charge Code: [id number] Physician: Big Stone Order #: [id number] Dose#: 16.4 LUNG BASES: Dependent changes. OTHER: Negative. CONCLUSION: 1. Acute appendicitis. Dictated by: Yudi Escobar MD on 05/06/2024 at 12:03 Approved by: Yudi Escobar MD on 05/06/2024 at 12:12 Normal [facility] LIPASEon 05-06-2024 Lipase [Catalytic activity/Vol] 31.0 U/L Normal 15.0 - 78.0 [facility] Comment on above: Result Comment: *PLE ASE NOTE THAT RANGES FOR LIPASE HAVE CHANGED OF 07/28/23 DUE TO AN ASSAY UPDATE BY THE MANAGER CHANNEL.THE NEW ASSAY RANGE IS 6-250 U/L, WITH A REFERENCE RANGE OF 16-77 U/L. Performed By: #### 2 50599 #### [facility],[address] [place] [address] 36911 URINALYSISon 05-06-2024 Amorphous NONE Normal [facility] Comment on above: Performed By: #### 2 79907 #### [facility],[address] [place], [place] [address] Bacteria TRACE Normal [facility] Comment on above: Performed By: #### 2 89399 #### [facility],[address] [place], [place] [address] Bilirubin Ql (U) Negative Normal NORMAL: NEGATIVE [facility] Comment on above: Performed By: #### 2 43442 #### [facility],[address] [place], [place] [address] Casts NONE Normal [facility] Comment on above: Performed By: #### 2 60361 #### [facility],[address] [place], [place] [address] Clarity (U) clear Normal NORMAL: CLEAR [facility] Comment on above: Performed By: #### 2 78117 #### [facility],[address] [place] [address] 55751 Color (U) p.yel Normal NORMAL: YELLOW [facility] Comment on above: Performed By: #### 2 96961 #### [facility],[address] [place] [address] 52138 Crystals LM Nom (Urine sed) NONE Normal [facility] Comment on above: Performed By: #### 2 62654 #### [facility],[address] [place] [address] 90614 Epi Cells NONE Normal [facility] Comment on above: Performed By: #### 2 21618 #### [facility],[address] [place] [address] 80268 Glucose Ql (U) NORM Normal NORMAL: NORMAL [facility] Comment on above: Performed By: #### 2 83356 #### [facility],[address] [place] [address] 34691 Hemoglobin Ql (U) 25 Abnormal NORMAL: NEGATIVE [facility] Comment on above: Performed By: #### 2 90021 #### [facility],[address] [place] [address] 23056 Ketone Negative Normal NORMAL: NEGATIVE [facility] Comment on above: Performed By: #### 2 66218 #### [facility],[address] [place] [address] 73064 Leukocytes Negative Normal NORMAL: NEGATIVE [facility] Comment on above: Performed By: #### 2 49590 #### [facility],[address] [place] [address] 98586 Mucous NONE Normal [facility] Comment on above: Performed By: #### 2 07871 #### [facility],[address] [place] [address] 44831 Nitrite Ql (U) Negative Normal NORMAL: NEGATIVE [facility] Comment on above: Performed By: #### 2 71725 #### [facility],[address] [place] [address] 87695 pH (U) 8 [pH] Normal NORMAL: 5.0-8.0 [facility] Comment on above: Performed By: #### 2 08823 #### [facility],[address] [place] [address] 52896 Protein Ql (U) Negative Normal NORMAL: NEGATIVE [facility] Comment on above: Performed By: #### 2 99588 #### [facility],[address] [place] [address] 12444 Rbc 5-10 Normal 0-3/hpf [facility] Comment on above: Performed By: #### 2 37738 #### [facility],[address] [place] [address] 60857 Sp [place] 1.015 Normal NORMAL: 1.010-1.030 [facility] Comment on above: Performed By: #### 2 37471 #### [facility],[address] [place] [address] 13907 Specimen Type Void Normal [facility] Comment on above: Performed By: #### 2 80705 #### [facility],[address] [place] [address] 45255 Urinalysis dipstick W Reflex Microscopic panel (U) SEE BELOW Normal [facility] Comment on above: Result Comment: MICR OSCOPIC Performed By: #### 2 89164 #### [facility],[address] [place] [address] 90578 Urobilinog NORM Normal NORMAL: NORMAL [facility] Comment on above: Performed By: #### 2 71380 #### [facility],[address] [place] [address] 45020 Wbc NONE Normal 0-5/hpf [facility] Comment on above: Performed By: #### 2 77298 #### [facility],[address] [place] [address] 03636 Yeast NONE Normal [facility] Comment on above: Performed By: #### 2 08174 #### [facility],[address] [place] [address] 41177 CHEST 2 VIEWSon 04-08-2024 CHEST 2 VIEWS [place] [address] Patient: GUY POTTS Phone#: : 1970 Age: 53 Gender: M Pt. Type: Out Account: [id number] Location: [facility] Ordering: ARABELLA BATES Exam Date: 04/08/2024/15:29 Family Phys: Charge Code: [id number] Physician: Big Stone Order #: [id number] Dose#: PROCEDURE: X-RAY CHEST 2 VIEWS COMPARISON: [facility], XR, CHEST 2 VIEWS, 03/20/2022, 8:19. INDICATIONS: Shortness of breath. FINDINGS: LUNGS: Normal. No significant pulmonary parenchymal abnormalities. VASCULATURE: Normal. Unremarkable pulmonary vasculature. CARDIAC: Normal. No cardiac silhouette abnormality or cardiomegaly. MEDIASTINUM: Normal. No visible mass or adenopathy. PLEURA: Normal. No effusion or pleural thickening. BONES: Normal. No fracture or visible bony lesion. OTHER: Negative. CONCLUSION: No acute disease. No significant change has occurred. Dictated by: Tracey Castro MD on 04/08/2024 at 17:13 Approved by: Tracey Castro MD on 04/08/2024 at 17:13 Normal [facility] CBC + DIFFon 03-28-2024 Baso # 0.01 x10EE3/UL Normal 0.00 - 0.10 [facility] Comment on above: Performed By: #### 2 23787 ####[facility],[address] [place], [place] [address] Basophils/100 WBC (Bld) 0.1 % Normal 0.0 - 2.0 [facility] Comment on above: Performed By: #### 2 58648 ####[facility],[address] [place] [address] CBC + DIFF Normal [facility] Comment on above: Result Comment: CBC- COMPLETE BLOOD COUNT Performed By: #### 2 65163 ####[facility],[address] [place] [address] 32930 EO # 0.17 x10EE3/UL Normal 0.00 - 0.50 [facility] Comment on above: Performed By: #### 2 72151 ####[facility],[address] [place] [address] 45953 Eosinophils/100 WBC (Bld) 2.1 % Normal 0.0 - 7.0 [facility] Comment on above: Performed By: #### 2 27086 ####[facility],[address] [place] [address] Erythrocyte distribution width (RBC) [Ratio] 11.9 % Low 12.0 - 15.6 [facility] Comment on above: Performed By: #### 2 89052 ####[facility],[address] [place] [address] 93749 Hematocrit (Bld) [Volume fraction] 42.9 % Normal 40.0 - 52.0 [facility] Comment on above: Performed By: #### 2 55942 ####[facility],[address] [place] [address] Hemoglobin (Bld) [Mass/Vol] 15.3 g/dL Normal 13.0 - 17.5 [facility] Comment on above: Performed By: #### 2 84820 ####[facility],[address] [place] [address] Lymph # 2.63 x10EE3/UL Normal 0.80 - 2.80 [facility] Comment on above: Performed By: #### 2 90774 ####[facility],[address] [place], [place] [address] Lymphocytes/100 WBC (Bld) 32.7 % Normal 20.0 - 45.0 [facility] Comment on above: Performed By: #### 2 40084 ####[facility],[address] [place] [address] 21445 MANUAL DIFF N/A Normal [facility] Comment on above: Performed By: #### 2 73690 ####[facility],[address] [place], [place] [address] MCH (RBC) [Entitic mass] 33 pg Normal 27 - 33 [facility] Comment on above: Performed By: #### 2 14672 ####[facility],[address] [place] [address] 30715 MCHC 36 X10 3 Normal 32 - 36 [facility] Comment on above: Performed By: #### 2 96824 ####[facility],[address] [place] [address] 40507 MCV (RBC) [Entitic vol] 93 fL Normal 81 - 98 [facility] Comment on above: Performed By: #### 2 85625 ####[facility],[address] [place] [address] 13357 Real # 0.62 x10EE3/UL Normal 0.20 - 1.00 [facility] Comment on above: Performed By: #### 2 06732 ####[facility],[address] [place] [address] 04826 MONOS % 7.6 % Normal 0.0 - 10.0 [facility] Comment on above: Performed By: #### 2 34003 ####[facility],[address] [place] [address] 92717 Morphology Gamal (Bld) [Interp] N/A Normal [facility] Comment on above: Performed By: #### 2 10500 ####[facility],[address] [place] [address] 71409 Neut # 4.63 x10EE3/UL Normal 1.50 - 7.10 [facility] Comment on above: Performed By: #### 2 72206 ####[facility],[address] [place] [address] 34520 Neutrophils/100 WBC (Bld) 57.5 % Normal 46.0 - 76.0 [facility] Comment on above: Performed By: #### 2 92070 ####[facility],[address] [place] [address] 99723 PLATELET 288 x10EE3/UL Normal 150 - 450 [facility] Comment on above: Performed By: #### 2 55961 ####[facility],[address] [place] [address] 86994 Platelet mean volume (Bld) [Entitic vol] 6.9 fL Normal 6.4 - 10.5 [facility] Comment on above: Result Comment: AUTO MATED DIFFERENTIAL Performed By: #### 2 16031 ####[facility],[address] [place] [address] 17333 RBC 4.61 x 10EE6/UL Normal 4.50 - 6.00 [facility] Comment on above: Performed By: #### 2 42010 ####[facility],[address] [place] [address] 24219 WBC 8.1 x 10EE3/UL Normal 4.5 - 10.8 [facility] Comment on above: Performed By: #### 2 63960 ####[facility],[address] [place] [address] 51345 CMP with eGFRon 03-28-2024 AGE 53 years Normal [facility] Comment on above: Performed By: #### 2 54872 ####[facility],[address] [place] [address] 42300 Albumin [Mass/Vol] 4.1 g/dL Normal 3.4 - 5.0 [facility] Comment on above: Performed By: #### 2 32059 ####[facility],[address] [place] [address] Albumin/Globulin [Mass ratio] 1.3 {ratio} Normal 0.9 - 1.6 [facility] Comment on above: Performed By: #### 2 25624 ####[facility],[address] [place] [address] 43932 ALK PHOS 75 U/L Normal 46 - 116 [facility] Comment on above: Performed By: #### 2 76715 ####[facility],[address] [place] [address] 46712 ALT [Catalytic activity/Vol] 55 U/L Normal 16 - 63 [facility] Comment on above: Performed By: #### 2 80258 ####[facility],[address] [place] [address] 33129 Anion gap [Moles/Vol] 15 mmol/L Normal 10 - 20 [facility] Comment on above: Performed By: #### 2 94225 ####[facility],[address] [place] [address] 70743 AST [Catalytic activity/Vol] 25 U/L Normal 15 - 37 [facility] Comment on above: Performed By: #### 2 44428 ####[facility],[address] [place] [address] B/C RATIO 11 ratio Normal 0 - 30 [facility] Comment on above: Performed By: #### 2 61186 ####[facility],[address] [place] [address] 20396 Bilirubin [Mass/Vol] 0.6 mg/dL Normal 0.2 - 1.0 [facility] Comment on above: Performed By: #### 2 48056 ####[facility],[address] [place] [address] Calcium [Mass/Vol] 9.3 mg/dL Normal 8.5 - 10.1 [facility] Comment on above: Performed By: #### 2 78620 ####[facility],[address] [place] [address] Chloride [Moles/Vol] 100 mmol/L Normal 98 - 107 [facility] Comment on above: Performed By: #### 2 77533 ####[facility],[address] [place] [address] CMP with eGFR Normal [facility] Comment on above: Result Comment: COMP REHENSIVE METABOLIC PANEL Performed By: #### 2 98927 ####[facility],[address] [place], [place] [address] CO2 [Moles/Vol] 27.4 mmol/L Normal 21.0 - 32.0 [facility] Comment on above: Performed By: #### 2 18833 ####[facility],[address] [place] [address] 56050 Creatinine [Mass/Vol] 1.13 mg/dL Normal 0.70 - 1.30 [facility] Comment on above: Performed By: #### 2 17842 ####[facility],[address] [place] [address] GFR/1.73 sq M.predicted among non-blacks MDRD (S/P/Bld) [Vol rate/Area] mL/min/{1.73_m2} Normal 60 - 999 [facility] Comment on above: Performed By: #### 2 46753 ####[facility],[address] [place] [address] Result Comment: ACCO RDING TO THE NATIONAL KIDNEY DISEASE EDUCATION PROGRAM(NKDE), A NORMAL eGFR IS A VALUE GREATER THAN OR EQUAL TO 60 ML/MIN/1.73 SQ METERS. CHRONIC KIDNEY DISEASE: <60mL/MIN/1.73 SQ METERS KIDNEY FAILURE: <15mL/MIN/1.73 SQ METERS THIS TEST SHOULD ONLY BE USED FOR PATIENTS 18 YEARS OF AGE AND OLDER. Globulin (S) [Mass/Vol] 3.1 g/dL Normal 1.5 - 3.8 [facility] Comment on above: Performed By: #### 2 63703 ####[facility],[address] [place] [address] 25843 Glucose [Mass/Vol] 91 mg/dL Normal 74 - 106 [facility] Comment on above: Performed By: #### 2 48623 ####[facility],[address] [place] [address] 44576 Potassium [Moles/Vol] 3.9 mmol/L Normal 3.5 - 5.1 [facility] Comment on above: Performed By: #### 2 10282 ####[facility],[address] [place] [address] 24885 Protein [Mass/Vol] 7.2 g/dL Normal 6.4 - 8.2 [facility] Comment on above: Performed By: #### 2 66421 ####[facility],[address] [place] [address] 79541 Sodium [Moles/Vol] 138 mmol/L Normal 136 - 145 [facility] Comment on above: Performed By: #### 2 01948 ####[facility],[address] [place] [address] 75526 Urea nitrogen [Mass/Vol] 12 mg/dL Normal 7 - 18 [facility] Comment on above: Performed By: #### 2 32989 ####[facility],[address] [place] [address] 86895 MAGNESIUMon 03-28-2024 Magnesium [Mass/Vol] 1.8 mg/dL Normal 1.8 - 2.4 [facility] Comment on above: Performed By: #### 2 69177 #### [facility],[address] [place] [address] 18364 MAGNESIUMon 03-12-2024 Magnesium [Mass/Vol] 2.1 mg/dL Normal 1.8 - 2.4 [facility] Comment on above: Performed By: #### 2 91522 #### [facility],[address] [place] [address] 73786 POTASSIUMon 03-12-2024 Potassium [Moles/Vol] 4.2 mmol/L Normal 3.5 - 5.1 [facility] Comment on above: Performed By: #### 2 82487 ####[facility],[address] [place] [address] 32061 BMP with eGFRon 03-07-2024 AGE 53 years Normal [facility] Comment on above: Performed By: #### 2 89790 ####[facility],[address] [place] [address] 14056 Anion gap [Moles/Vol] 12 mmol/L Normal 10 - 20 [facility] Comment on above: Performed By: #### 2 68755 ####[facility],[address] [place] [address] 27124 BMP with eGFR Normal [facility] Comment on above: Result Comment: BASI C METABOLIC PANEL Performed By: #### 2 24486 ####[facility],[address] [place] [address] 77412 Calcium [Mass/Vol] 9.8 mg/dL Normal 8.5 - 10.1 [facility] Comment on above: Performed By: #### 2 42101 ####[facility],[address] [place] [address] 39305 Chloride [Moles/Vol] 101 mmol/L Normal 98 - 107 [facility] Comment on above: Performed By: #### 2 66159 ####[facility],[address] [place] [address] 76567 CO2 [Moles/Vol] 29.3 mmol/L Normal 21.0 - 32.0 [facility] Comment on above: Performed By: #### 2 65445 ####[facility],[address] [place], [place] [address] Creatinine [Mass/Vol] 0.98 mg/dL Normal 0.70 - 1.30 [facility] Comment on above: Performed By: #### 2 38577 ####[facility],[address] [place], [place] [address] GFR/1.73 sq M.predicted among non-blacks MDRD (S/P/Bld) [Vol rate/Area] mL/min/{1.73_m2} Normal 60 - 999 [facility] Comment on above: Performed By: #### 2 59559 ####[facility],[address] [place] [address] 11395 Result Comment: ACCO RDING TO THE NATIONAL KIDNEY DISEASE EDUCATION PROGRAM(NKDE), A NORMAL eGFR IS A VALUE GREATER THAN OR EQUAL TO 60 ML/MIN/1.73 SQ METERS. CHRONIC KIDNEY DISEASE: <60mL/MIN/1.73 SQ METERS KIDNEY FAILURE: <15mL/MIN/1.73 SQ METERS THIS TEST SHOULD ONLY BE USED FOR PATIENTS 18 YEARS OF AGE AND OLDER. Glucose [Mass/Vol] 100 mg/dL Normal 74 - 106 [facility] Comment on above: Performed By: #### 2 09815 ####[facility],[address] [place] [address] 60927 Potassium [Moles/Vol] 3.7 mmol/L Normal 3.5 - 5.1 [facility] Comment on above: Performed By: #### 2 49181 ####[facility],[address] [place] [address] 87636 Sodium [Moles/Vol] 139 mmol/L Normal 136 - 145 [facility] Comment on above: Performed By: #### 2 98748 ####[facility],[address] [place] [address] 58910 Urea nitrogen [Mass/Vol] 17 mg/dL Normal 7 - 18 [facility] Comment on above: Performed By: #### 2 53316 ####[facility],[address] [place] [address] 96913 MAGNESIUMon 03-07-2024 Magnesium [Mass/Vol] 2.1 mg/dL Normal 1.8 - 2.4 [facility] Comment on above: Performed By: #### 2 24080 #### [facility],[address] [place] [address] 04358 MAGNESIUMon 03-05-2024 Magnesium [Mass/Vol] 0.9 mg/dL Critically low 1.8 - 2.4 [facility] Comment on above: Result Comment: { CA LLED TO @ 0432 { READ BACK BY TO TRR Performed By: #### 2 85696 #### [address] [address] PHOSPHORUSon 03-05-2024 Phosphate [Mass/Vol] 3.7 mg/dL Normal 2.6 - 4.7 [facility] Comment on above: Performed By: #### 2 33955 ####[facility],[address] [place] [address] 00788 POTASSIUMon 03-05-2024 Potassium [Moles/Vol] 3.7 mmol/L Normal 3.5 - 5.1 [facility] Comment on above: Performed By: #### 2 14724 ####[facility],[address] [place] [address] 63872 BMP with eGFRon 03-02-2024 AGE 53 years Normal [facility] Comment on above: Performed By: #### 2 92335 ####[facility],[address] [place] [address] 17967 Anion gap [Moles/Vol] 14 mmol/L Normal 10 - 20 [facility] Comment on above: Performed By: #### 2 30260 ####[facility],[address] [place] [address] 36483 BMP with eGFR Normal [facility] Comment on above: Result Comment: BASI C METABOLIC PANEL Performed By: #### 2 61599 ####[facility],[address] [place] [address] 70665 Calcium [Mass/Vol] 9.2 mg/dL Normal 8.5 - 10.1 [facility] Comment on above: Performed By: #### 2 60679 ####[facility],[address] [place] [address] 50420 Chloride [Moles/Vol] 103 mmol/L Normal 98 - 107 [facility] Comment on above: Performed By: #### 2 60453 ####[facility],[address] [place] [address] 44528 CO2 [Moles/Vol] 29.6 mmol/L Normal 21.0 - 32.0 [facility] Comment on above: Performed By: #### 2 85182 ####[facility],[address] [place] [address] 37413 Creatinine [Mass/Vol] 1.04 mg/dL Normal 0.70 - 1.30 [facility] Comment on above: Performed By: #### 2 36084 ####[facility],[address] [place] [address] 33829 GFR/1.73 sq M.predicted among non-blacks MDRD (S/P/Bld) [Vol rate/Area] mL/min/{1.73_m2} Normal 60 - 999 [facility] Comment on above: Performed By: #### 2 90629 ####[place] [address] Result Comment: ACCO RDING TO THE NATIONAL KIDNEY DISEASE EDUCATION PROGRAM(NKDE), A NORMAL eGFR IS A VALUE GREATER THAN OR EQUAL TO 60 ML/MIN/1.73 SQ METERS. CHRONIC KIDNEY DISEASE: <60mL/MIN/1.73 SQ METERS KIDNEY FAILURE: <15mL/MIN/1.73 SQ METERS THIS TEST SHOULD ONLY BE USED FOR PATIENTS 18 YEARS OF AGE AND OLDER. Glucose [Mass/Vol] 125 mg/dL High 74 - 106 [facility] Comment on above: Performed By: #### 2 52051 ####[place] [address] Sodium [Moles/Vol] 142 mmol/L Normal 136 - 145 [facility] Comment on above: Performed By: #### 2 97203 ####[place] [address] Urea nitrogen [Mass/Vol] 12 mg/dL Normal 7 - 18 [facility] Comment on above: Performed By: #### 2 66863 ####[place] [id number] EMERGENCY REPORTon 4 EMERGENCY REPORT [facility] EMERGENCY ROOM REPORT NAME ACCOUNT SEX AGE ADMIT DISCHARGE PT MED. RECORD# NUMBER DATE DATE TYPE GUY POTTS [id number] M 53 02/29/24 3 [id number] ROOM: ER DATE OF : 1970 DICTATING PHYSICIAN: Андрей Dickey HISTORY OF PRESENT ILLNESS: This is a 53-year-old gentleman who has a history of hyperlipidemia and hypertension. 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 He had blood work done at his doctors office yesterday because he has been having some diffuse muscle cramping recently. He has had problems with hypokalemia in the past and is currently on a potassium supplement. They checked his magnesium also yesterday, and it was 0.5. They called him and told him to come in for IV magnesium today. He denies any chest or abdominal pain. He has had no shortness of breath. No other neurologic complaints. PAST MEDICAL HISTORY: Past medical history is significant for the hyperlipidemia, hypertension, as well as hypokalemia. SOCIAL HISTORY: He does not smoke or drink excessively. REVIEW OF SYSTEMS: Review of systems is significant for the recent muscle cramps. He denies chest pain. He denies abdominal pain. He denies shortness of breath. All other review of systems are negative except as noted above. PHYSICAL EXAMINATION: VITAL SIGNS: Afebrile. Vital signs are stable. GENERAL EXAMINATION: The patient is alert and appears very comfortable. HEENT: Mouth and pharynx is clear. NECK: Neck is supple. CHEST: Clear. CARDIOVASCULAR EXAMINATION: Regular rate and rhythm. ABDOMEN: Soft and nontender. NEUROLOGIC EXAMINATION: Normal. DIAGNOSTIC DATA: Review of the laboratory work shows the potassium to be 3.3 and the magnesium at 0.5. MEDICAL DECISION MAKING/EMERGENCY DEPARTMENT COURSE AND TREATMENT: This is a 53-year-old gentleman with a history of hypokalemia who presents with abnormal laboratories yesterday. Differential diagnoses includes hypomagnesemia secondary to renal function, hypomagnesemia secondary to medications, hypomagnesemia secondary to environmental condition. An IV was started, and the patient was given 2 grams of magnesium IV. He was also given 400 mg of magnesium oxide p.o. The patient feels fine at this time. He is comfortable returning home. DIAGNOSIS: Acute hypomagnesemia. Page 1 of 2 [facility] Emergency Room Report [facility] GUY Priscila : 1970 PLAN/DISPOSITION: He will be placed on a magnesium supplement once a day, and he is to continue his potassium supplement and follow-up with his primary care physician. Dictated By: Андрей Dickey MD 02/29/24 11:56 JOB #: [id number] Transcribed By: am 02/29/24 11:59 Electronically signed by: Андрей Dickey M.D. 03/02/24 08:52 Page 2 of 2 [facility] Emergency Room Report Normal [facility] MAGNESIUMon 03-02-2024 Magnesium [Mass/Vol] 1.2 mg/dL Low 1.8 - 2.4 [facility] Comment on above: Performed By: #### 2 57383 #### [facility],[address] [place] [address] 11025 POTASSIUMon 03-02-2024 Potassium [Moles/Vol] 4.3 mmol/L Normal 3.5 - 5.1 [facility] Comment on above: Performed By: #### 2 40708 ####[facility],[address] [place] [address] 53912 Performed By: #### 2 28910 ####[facility],[address] [place] [address] 04024 PTH, INTACT [CCL]on 03-02-20 24 PTH, Intact 34 pg/mL Normal [facility] Comment on above: Result Comment: [facility] [address] [place] [address] Paramjit Smith III, M.D. [id number] Performed By: #### 2 10370 ####[facility],[address] [place] [address] 95486 PTH, Intact 25 pg/mL Normal [facility] Comment on above: Result Comment: [facility] [address] [place] [address] Paramjit Smith III, M.D. [id number] Performed By: #### 2 29417 ####[facility],[address] [place] [address] 82828 BMP with eGFRon 03-01-2024 AGE 53 years Normal [facility] Comment on above: Performed By: #### 2 73215 #### [facility],[address] [place] [address] 56983 Anion gap [Moles/Vol] 12 mmol/L Normal [facility] Comment on above: Performed By: #### 2 60089 #### [facility],[address] [place] [address] 82598 BMP with eGFR Normal [facility] Comment on above: Result Comment: BASI C METABOLIC PANEL Performed By: #### 2 58888 #### [facility],[address] [place] [address] 12684 Calcium [Mass/Vol] 9.8 mg/dL Normal 8.5 - 10.1 [facility] Comment on above: Performed By: #### 2 39530 #### [facility],[address] [place] [address] 49228 Chloride [Moles/Vol] 101 mmol/L Normal 98 - 107 [facility] Comment on above: Performed By: #### 2 87201 #### [facility],[address] [place] [address] 15856 CO2 [Moles/Vol] 29.7 mmol/L Normal 21.0 - 32.0 [facility] Comment on above: Performed By: #### 2 85088 #### [facility],[address] [place], [place] [address] Creatinine [Mass/Vol] 0.95 mg/dL Normal 0.70 - 1.30 [facility] Comment on above: Performed By: #### 2 53252 #### [facility],[address] [place], [place] [address] GFR/1.73 sq M.predicted among non-blacks MDRD (S/P/Bld) [Vol rate/Area] mL/min/{1.73_m2} Normal 60 - 999 [facility] Comment on above: Performed By: #### 2 48505 #### [facility],[address] [place] [address] Result Comment: ACCO RDING TO THE NATIONAL KIDNEY DISEASE EDUCATION PROGRAM(NKDE), A NORMAL eGFR IS A VALUE GREATER THAN OR EQUAL TO 60 ML/MIN/1.73 SQ METERS. CHRONIC KIDNEY DISEASE: <60mL/MIN/1.73 SQ METERS KIDNEY FAILURE: <15mL/MIN/1.73 SQ METERS THIS TEST SHOULD ONLY BE USED FOR PATIENTS 18 YEARS OF AGE AND OLDER. Glucose [Mass/Vol] 113 mg/dL High 74 - 106 [facility] Comment on above: Performed By: #### 2 04560 #### [facility],[address] [place] [address] 19337 Potassium [Moles/Vol] 4.1 mmol/L Normal 3.5 - 5.1 [facility] Comment on above: Performed By: #### 2 85431 #### [facility],[address] [place] [address] 83002 Sodium [Moles/Vol] 139 mmol/L Normal 136 - 145 [facility] Comment on above: Performed By: #### 2 98356 #### [facility],[address] [place] [address] 10860 Urea nitrogen [Mass/Vol] 14 mg/dL Normal 7 - 18 [facility] Comment on above: Performed By: #### 2 78653 #### [facility],[address] [place] [address] 66978 MAGNESIUMon 03-01-2024 Magnesium [Mass/Vol] 1.2 mg/dL Low 1.8 - 2.4 [facility] Comment on above: Performed By: #### 2 83332 ####[facility],[address] [place] [address] 74450 MAGNESIUMon 02-29-2024 Magnesium [Mass/Vol] 0.5 mg/dL Critically low 1.8 - 2.4 [facility] Comment on above: Result Comment: { CA LLED TO [place] AT 0819 NURSE NOT IN TILL 0900, WILL CALL BACK { READ BACK BY SHAWANDA IRAHETA TO [facility]WB Performed By: #### 2 10133 ####[facility],[address] [place] [address] 82934 VITAMIN B-12on 02-29-2024 Cobalamin (Vitamin B12) [Mass/Vol] 550 pg/mL Normal 193 - 986 [facility] Comment on above: Performed By: #### 2 79895 ####[facility],[address] [place] [address] 27129 VITAMIN D, 25 HYDROXYon 08-0 VitD 35.80 ng/mL Normal 30.00 - 100 [facility] Comment on above: Result Comment: 25-O HD3 indicates both endogenous production and supplementation. 25-OHD2 is an indicator of exogenous sources, such as diet or supplementation. Therapy is based on measurement of Total 25-OHD, with levels <20 ng/mL indicative of Vitamin D deficiency, while levels between 20 ng/mL and 30 ng/mL suggest insufficiency. Optimal levels are >=30ng/mL. Vitamin D, 25-OH D3 Not Established Vitamin D, 25-OH D2 Not Established Performed By: #### 2 61434 ####[facility],[address] [place] [address] 68854 BMP with eGFRon 02-28-2024 AGE 53 years Normal [facility] Comment on above: Performed By: #### 2 92191 #### [facility],[address] [place] [address] 31110 Anion gap [Moles/Vol] 11 mmol/L Normal 10 - 20 [facility] Comment on above: Performed By: #### 2 53086 #### [facility],[address] [place] [address] 19795 BMP with eGFR Normal [facility] Comment on above: Result Comment: BASI C METABOLIC PANEL Performed By: #### 2 56413 #### [facility],[address] [place] [address] 13443 Calcium [Mass/Vol] 8.8 mg/dL Normal 8.5 - 10.1 [facility] Comment on above: Performed By: #### 2 86487 #### [facility],[address] [place] [address] 78874 Chloride [Moles/Vol] 102 mmol/L Normal 98 - 107 [facility] Comment on above: Performed By: #### 2 12053 #### [facility],[address] [place] [address] 53276 CO2 [Moles/Vol] 29.9 mmol/L Normal 21.0 - 32.0 [facility] Comment on above: Performed By: #### 2 72394 #### [facility],[address] [place] [address] 04676 Creatinine [Mass/Vol] 1.01 mg/dL Normal 0.70 - 1.30 [facility] Comment on above: Performed By: #### 2 76460 #### [facility],[address] [place], [place] [address] GFR/1.73 sq M.predicted among non-blacks MDRD (S/P/Bld) [Vol rate/Area] mL/min/{1.73_m2} Normal 60 - 999 [facility] Comment on above: Performed By: #### 2 98453 #### [facility],[address] [place] [address] Result Comment: ACCO RDING TO THE NATIONAL KIDNEY DISEASE EDUCATION PROGRAM(NKDE), A NORMAL eGFR IS A VALUE GREATER THAN OR EQUAL TO 60 ML/MIN/1.73 SQ METERS. CHRONIC KIDNEY DISEASE: <60mL/MIN/1.73 SQ METERS KIDNEY FAILURE: <15mL/MIN/1.73 SQ METERS THIS TEST SHOULD ONLY BE USED FOR PATIENTS 18 YEARS OF AGE AND OLDER. Glucose [Mass/Vol] 105 mg/dL Normal 74 - 106 [facility] Comment on above: Performed By: #### 2 08514 #### [facility],[address] [place] [address] 65619 Potassium [Moles/Vol] 3.3 mmol/L Low 3.5 - 5.1 [facility] Comment on above: Performed By: #### 2 01844 #### [facility],[address] [place] [address] 82606 Sodium [Moles/Vol] 140 mmol/L Normal 136 - 145 [facility] Comment on above: Performed By: #### 2 34947 #### [facility],[address] [place] [address] 22828 Urea nitrogen [Mass/Vol] 9 mg/dL Normal 7 - 18 [facility] Comment on above: Performed By: #### 2 31236 #### [facility],[address] [place] [address] 42350 POTASSIUMon 02-12-2024 Potassium [Moles/Vol] 3.2 mmol/L Low 3.5 - 5.1 [facility] Comment on above: Performed By: #### 2 24265 #### [facility],[address] [place] [address] 67903 POTASSIUMon 01-15-2024 Potassium [Moles/Vol] 3.2 mmol/L Low 3.5 - 5.1 [facility] Comment on above: Performed By: #### 2 48677 ####[facility],[address] [place] [address] 77855 CBC + DIFFon 12-29-2023 Baso # 0.02 x10EE3/UL Normal 0.00 - 0.10 [facility] Comment on above: Performed By: #### 2 87943 ####[facility],[address] [place] [address] 21328 Basophils/100 WBC (Bld) 0.2 % Normal 0.0 - 2.0 [facility] Comment on above: Performed By: #### 2 56473 ####[facility],[address] [place] [address] 27465 CBC + DIFF Normal [facility] Comment on above: Result Comment: CBC- COMPLETE BLOOD COUNT Performed By: #### 2 82867 ####[facility],[address] [place] [address] 03996 EO # 0.26 x10EE3/UL Normal 0.00 - 0.50 [facility] Comment on above: Performed By: #### 2 56008 ####[facility],[address] [place] [address] 43234 Eosinophils/100 WBC (Bld) 2.8 % Normal 0.0 - 7.0 [facility] Comment on above: Performed By: #### 2 82633 ####[facility],[address] [place] [address] 72629 Erythrocyte distribution width (RBC) [Ratio] 12.4 % Normal 12.0 - 15.6 [facility] Comment on above: Performed By: #### 2 25362 ####[facility],[address] [place] [address] Hematocrit (Bld) [Volume fraction] 43.1 % Normal 40.0 - 52.0 [facility] Comment on above: Performed By: #### 2 50351 ####[facility],[address] [place] [address] Hemoglobin (Bld) [Mass/Vol] 15.1 g/dL Normal 13.0 - 17.5 [facility] Comment on above: Performed By: #### 2 39853 ####[place] [address] Lymph # 3.09 x10EE3/UL High 0.80 - 2.80 [facility] Comment on above: Performed By: #### 2 91877 ####[facility],[address] [place], [place] [address] Lymphocytes/100 WBC (Bld) 33.6 % Normal 20.0 - 45.0 [facility] Comment on above: Performed By: #### 2 79021 ####[facility],[address] [place], [place] [address] MANUAL DIFF N/A Normal [facility] Comment on above: Performed By: #### 2 92643 ####[facility],[address] [place], [place] [address] MCH (RBC) [Entitic mass] 33 pg Normal 27 - 33 [facility] Comment on above: Performed By: #### 2 63970 ####[place] [address] MCHC 35 X10 3 Normal 32 - 36 [facility] Comment on above: Performed By: #### 2 59002 ####[facility],[address] [place] [address] 91735 MCV (RBC) [Entitic vol] 95 fL Normal 81 - 98 [facility] Comment on above: Performed By: #### 2 76071 ####[facility],[address] [place] [address] 96242 Real # 0.68 x10EE3/UL Normal 0.20 - 1.00 [facility] Comment on above: Performed By: #### 2 44906 ####[facility],[address] [place] [address] 36861 MONOS % 7.5 % Normal 0.0 - 10.0 [facility] Comment on above: Performed By: #### 2 24785 ####[facility],[address] [place] [address] 23581 Morphology Gamal (Bld) [Interp] N/A Normal [facility] Comment on above: Performed By: #### 2 54900 ####[facility],[address] [place] [address] 31485 Neut # 5.13 x10EE3/UL Normal 1.50 - 7.10 [facility] Comment on above: Performed By: #### 2 61784 ####[facility],[address] [place] [address] 24153 Neutrophils/100 WBC (Bld) 55.9 % Normal 46.0 - 76.0 [facility] Comment on above: Performed By: #### 2 79628 ####[facility],[address] [place] [address] 58352 PLATELET 324 x10EE3/UL Normal 150 - 450 [facility] Comment on above: Performed By: #### 2 81017 ####[facility],[address] [place] [address] 34019 Platelet mean volume (Bld) [Entitic vol] 7.3 fL Normal 6.4 - 10.5 [facility] Comment on above: Result Comment: AUTO MATED DIFFERENTIAL Performed By: #### 2 22518 ####[facility],[address] [place] [address] 02678 RBC 4.55 x 10EE6/UL Normal 4.50 - 6.00 [facility] Comment on above: Performed By: #### 2 85710 ####[facility],[address] [place] [address] 20492 WBC 9.2 x 10EE3/UL Normal 4.5 - 10.8 [facility] Comment on above: Performed By: #### 2 23632 ####[facility],[address] [place] [address] 59789 CMP with eGFRon 12-29-2023 AGE 53 years Normal [facility] Comment on above: Performed By: #### 2 99099 #### [facility],[address] [place] [address] 84417 Albumin [Mass/Vol] 3.7 g/dL Normal 3.4 - 5.0 [facility] Comment on above: Performed By: #### 2 91564 #### [facility],[address] [place] [address] 92868 Albumin/Globulin [Mass ratio] 1.2 {ratio} Normal 0.9 - 1.6 [facility] Comment on above: Performed By: #### 2 22390 #### [facility],[address] [place] [address] 49177 ALK PHOS 67 U/L Normal 46 - 116 [facility] Comment on above: Performed By: #### 2 18905 #### [facility],[address] [place] [address] 60492 ALT [Catalytic activity/Vol] 41 U/L Normal 16 - 63 [facility] Comment on above: Performed By: #### 2 36286 #### [facility],[address] [place] [address] 48317 Anion gap [Moles/Vol] 8 mmol/L Low 10 - 20 [facility] Comment on above: Performed By: #### 2 37356 #### [facility],[address] [place] [address] 16714 AST [Catalytic activity/Vol] 20 U/L Normal 15 - 37 [facility] Comment on above: Performed By: #### 2 38714 #### [facility],[address] [place], [place] [address] B/C RATIO 15 ratio Normal 0 - 30 [facility] Comment on above: Performed By: #### 2 61518 #### [facility],[address] [place] [address] Bilirubin [Mass/Vol] 0.6 mg/dL Normal 0.2 - 1.0 [facility] Comment on above: Performed By: #### 2 34578 #### [facility],[address] [place], [place] [address] Calcium [Mass/Vol] 8.8 mg/dL Normal 8.5 - 10.1 [facility] Comment on above: Performed By: #### 2 38558 #### [facility],[address] [place], [place] [address] Chloride [Moles/Vol] 106 mmol/L Normal 98 - 107 [facility] Comment on above: Performed By: #### 2 55632 #### [facility],[address] [place] [address] 11189 CMP with eGFR Normal [facility] Comment on above: Result Comment: COMP REHENSIVE METABOLIC PANEL Performed By: #### 2 30930 #### [facility],[address] [place] [address] 00403 CO2 [Moles/Vol] 30.9 mmol/L Normal 21.0 - 32.0 [facility] Comment on above: Performed By: #### 2 68966 #### [facility],[address] [place] [address] 00966 Creatinine [Mass/Vol] 0.97 mg/dL Normal 0.70 - 1.30 [facility] Comment on above: Performed By: #### 2 48960 #### [address] [address] GFR/1.73 sq M.predicted among non-blacks MDRD (S/P/Bld) [Vol rate/Area] mL/min/{1.73_m2} Normal 60 - 999 [facility] Comment on above: Performed By: #### 2 19809 #### [facility],[address] [place], [place] [address] Result Comment: ACCO RDING TO THE NATIONAL KIDNEY DISEASE EDUCATION PROGRAM(NKDE), A NORMAL eGFR IS A VALUE GREATER THAN OR EQUAL TO 60 ML/MIN/1.73 SQ METERS. CHRONIC KIDNEY DISEASE: <60mL/MIN/1.73 SQ METERS KIDNEY FAILURE: <15mL/MIN/1.73 SQ METERS THIS TEST SHOULD ONLY BE USED FOR PATIENTS 18 YEARS OF AGE AND OLDER. Globulin (S) [Mass/Vol] 3.0 g/dL Normal 1.5 - 3.8 [facility] Comment on above: Performed By: #### 2 86542 #### [place] [id number] Glucose [Mass/Vol] 101 mg/dL Normal 74 - 106 [facility] Comment on above: Performed By: #### 2 92918 #### [address] [address] Potassium [Moles/Vol] 3.3 mmol/L Low 3.5 - 5.1 [facility] Comment on above: Performed By: #### 2 02117 #### [address] [address] Protein [Mass/Vol] 6.7 g/dL Normal 6.4 - 8.2 [facility] Comment on above: Performed By: #### 2 65031 #### [facility],[address] [place] [address] 47443 Sodium [Moles/Vol] 142 mmol/L Normal 136 - 145 [facility] Comment on above: Performed By: #### 2 52655 #### [facility],[address] [place] [address] 94823 Urea nitrogen [Mass/Vol] 15 mg/dL Normal 7 - 18 [facility] Comment on above: Performed By: #### 2 33191 #### [facility],[address] [place] [address] 19665 HEMOGLOBIN A1C (POM)on 12-28 Glucose [Mass/Vol] 111.2 mg/dL High 0.0 - 0.0 [facility] Comment on above: Result Comment: BLDo HEMOGLOBIN A1C REFERENCE RANGESBLDo Suggested Diagnosis HbA1c(%) HbA1C (mmol/mol Diabetic >/=6.5 >/=48 Prediabetes 5.7 - 6.4 39 - 47 Normal <5.7 <39 Performed By: #### 2 88181 #### [facility],[address] [place] [address] 37896 HbA1c (Bld) [Mass fraction] 5.5 % Normal 0.0 - 6.5 [facility] Comment on above: Performed By: #### 2 [id number] #### [facility],[address] [place] [address]5631 LIPID PROFILEon 12-29-2023 Cholesterol [Mass/Vol] 165 mg/dL Normal 0 - 240 [facility] Comment on above: Performed By: #### 2 [id number] ####[facility],[address] [place] [address] 04623 Cholesterol in HDL [Mass/Vol] 51 mg/dL Normal 40 - 60 [facility] Comment on above: Performed By: #### 2 [id number] ####[facility],[address] [place] [address] 75285 Cholesterol in LDL [Mass/Vol] 80 mg/dL Normal 0 - 129 [facility] Comment on above: Performed By: #### 2 [id number] ####[facility],[address] [place] [address] 24404 Cholesterol.total /Cholesterol in HDL [Mass ratio] 3.2 {ratio} Normal 0.0 - 5.0 [facility] Comment on above: Performed By: #### 2 [id number] ####[facility],[address] [place] [address] 76429 Lipid 1996 panel Normal [facility] Comment on above: Result Comment: LIPI D PROFILE Performed By: #### 2 [id number] ####[facility],[address] [place] [address] 48468 Triglyceride [Mass/Vol] 171 mg/dL High 0 - 150 [facility] Comment on above: Performed By: #### 2 [id number] ####[facility],[address] [place] [address] 62585 Final Surgical Pathology Rep [facility] 06-28-2023 Final Surgical Pathology Report . Pathology Reports Accession: Collected Date/Time: Received Date/Time: Pathologist: [id number] 06/26/2023 08:39 EST 06/27/2023 07:58 EST JORGE WILLS MD Final Surgical Pathology Report DIAGNOSIS: A. STOMACH, BIOPSY: - NO SIGNIFICANT PATHOLOGY B. GASTROESOPHAGEAL JUNCTION, BIOPSY: - JUNCTIONAL MUCOSA WITH MILD CHRONIC INFLAMMATION. NO ONTIVEROS'S, NO DYSPLASIA. COMMENT: [facility] # [id number] CLINICAL INFORMATION: ONTIVEROS'S ESOPHAGUS SPECIMEN: A GASTRIC BODY B GE JUNCTION GROSS DESCRIPTION: All parts labelled with patient name and [id number] A. Received in formalin labeled gastric body are 2 lópez-brown tissue fragments each measuring 0.3 x 0.2 cm. TS-1 B. Received in formalin labeled GE junction are 4 lópez-brown tissue fragments measuring 0.2 to 0.3 cm. TS-1 Janell Jennings, Grossing Meter Readers Supervisor/ Dr. Jorge Wills, Pathologist Dictated by Janell Jennings MICROSCOPIC DESCRIPTION: The microscopic examination is performed, except in the case of Gross Only. Electronically Signed by Pathology Report verified by [facility] JORGE WILLS Sign out Date: 06/28/2023 16:58 Performing Lab: [facility], [address] [place] [address] [facility] Pathology Dept Disclaimer If ancillary studies were utilized, the following Laboratory Developed Test (LDT) disclaimer will apply: Under CLIA requirements, [facility] Pathology Laboratory is qualified to perform high complexity testing. For all ancillary stains, positive and negative controls stain appropriately. Performance characteristics of immunohistochemical and chromogenic in-situ hybridization tests have been determined by [facility] Pathology Laboratory. These tests are used for clinical purposes, They should not be regarded as investigational or for research. Normal [facility] ([place]) Hemoglobin A1con 06-07-2021 Glucose [Mass/Vol] 105 mg/dL Normal [facility] [place] [facility] Comment on above: Performed By: #### H BA1C #### [facility] [place] [facility] Routine Lab [address] [place], [place] [address] HbA1c (Bld) [Mass fraction] 5.3 % Normal 4.3-5.6 [facility] [place] [facility] Comment on above: Performed By: #### H BA1C #### [facility] [place] [facility] Routine Lab [address] [place], [place] [address] Hemoglobin A1con 06-16-2020 Glucose [Mass/Vol] 103 mg/dL Normal [facility] [place] [facility] Comment on above: Performed By: #### H BA1C #### [facility] [place] [facility] Routine Lab [address] [place], [place] [address] HbA1c (Bld) [Mass fraction] 5.2 % Normal 4.3-5.6 [facility] [place] [facility] Comment on above: Performed By: #### H BA1C #### [facility] [place] [facility] Routine Lab [address] [place], [place] [address] GLUCOSE METERon 04-29-2020 Glucose [Mass/Vol] 98 mg/dL Normal 70-115 [facility] OR.OPRPTon 04-29-2020 Operative Report Normal [facility] OR.OPRPT [facility] Patient Name: GUY POTTS [address] [employer] Date of : [address] [place], [place] [address] Unit Number: [id number] Operative Report Patient Status: REG [facility] Attending Doctor: Gutierrez Carcamo MD Service Date: 04/29/20 1434 Operative Report Procedure Date: 04/29/20 Attending Physician: Gutierrez Carcamo MD Procedure: Preoperative Diagnosis: Scrotal hematoma Postoperative Diagnosis: Same Procedure Type: Incision and drainage of scrotal hematoma Anesthesia: General Estimated Blood Loss: 0 IV Fluids: [] Urine Output: None Complications: None Findings/Specimens: No specimen Procedure Details: The patient was administered IV antibiotics and taken to the operating room where he was administered a general anesthetic. He was placed in the supine position , prepped with ChloraPrep, and then sterilely draped. I used a hemostat to open the previous midline scrotal incision. With compression I was able to evacuate the majority of the clot. There was a significant amount of old organized clot. I then irrigated the scrotum with saline. There was no active bleeding. I packed the wound with iodoform gauze. The patient was and placed in a scrotal support. Summary: [] Disclaimer This dictation was created using voice recognition software. Phonetic and/or minor grammatical errors may exist. eSign Date and Time Gutierrez Carcamo MD Verified/Reviewed by 04/29/20 1437 Normal [facility] GLUCOSE METERon 04-16-2020 Glucose [Mass/Vol] 91 mg/dL Normal 70-115 [facility] OR.OPRPTon 04-16-2020 Operative Report Normal [facility] OR.OPRPT [facility] Patient Name: UGY POTTS [facility] [employer] Date of : [address] [place], [place] [address] Unit Number: [id number] Operative Report Patient Status: REG [facility] Attending Doctor: Gutierrez Carcamo MD Service Date: 04/16/20 1635 Operative Report Procedure Date: 04/16/20 Attending Physician: Gutierrez Carcamo MD Procedure: Preoperative Diagnosis: Bilateral chronic epididymitis Postoperative Diagnosis: Same Procedure Type: Bilateral epididymectomy Anesthesia: General with local Estimated Blood Loss: 2 cc IV Fluids: [] Urine Output: None Complications: None Findings/Specimens: Bilateral epididymitis. Normal testicles. Procedure Details: The patient was administered IV antibiotics and taken to the operating room where he was administered a general anesthetic. He was positioned supine. He was shaved. He was prepped with ChloraPrep and then sterilely draped. I injected 6 cc of quarter percent Marcaine in each spermatic cord. I made a midline scrotal incision in the right testicle was delivered through this using sharp dissection. The tunica vaginalis was then opened the epididymis was excised with electrocautery as well as the overlying tunica vaginalis. The cut edge of the tunica vaginalis was reapproximated to the tunica albuginea to stabilize the testicle. The right testicle was pink and viable when was returned to the right hemiscrotum. I irrigated the right hemiscrotum. The left testicle was delivered through the same incision using the same technique. The epididymis was excised similarly. Hemostasis was confirmed. The testicle appeared viable at the completion of the procedure. The scrotum was closed with 3-0 chromic the dartos and skin. Bacitracin was placed on the incision. Summary: [] Disclaimer This dictation was created using voice recognition software. Phonetic and/or minor grammatical errors may exist. eSign Date and Time Gutierrez Carcamo MD Verified/Reviewed by 04/16/20 7630 [facility] [place] SURGlaura 04-16-2020 SURG ---- Patient: GUY POTTS W SPECIMEN: [id number] Collection Date: 04/16/20 Received: 04/17/20 Status: SOHAM [address] Gutierrez Carcamo MD Ph# Othr. DrKrish: Arabella Bates [facility] Material for Examination: A RIGHT EPIDIDYMIS B LEFT EPIDIDYMIS PRE-OP DIAGNOSIS: BILATERAL EPIDIDYMITIS POST-OP DIAGNOSIS: SAME SURGICAL PROCEDURE: BILATERAL EPIDIDYMECTOMY DIAGNOSIS A. Right epididymis, epididymectomy: - Epididymis; minimal chronic inflammation and fibrosis, clinically epididymitis. - No malignancy identified. B. Left epididymis, epididymectomy: - Epididymis; minimal chronic inflammation and fibrosis, clinically epididymitis. - No malignancy identified. GROSS DESCRIPTION No A. The specimen is received in formalin and labeled with the patient's name, ID and designated right epididymis. It consists of an irregularly shaped portion of rubbery pink-lópez tissue grossly consistent with epididymis. This measures 5.8 x 2.5 x 1.5 cm in greatest dimension. The external surface is smooth to wrinkled. Sectioning shows no specific gross abnormalities. Multiple merchandiser retail representative sections are submitted in cassettes A1 through A4. Additional sections are submitted in cassettes A5-6. The remainder of the specimen in cassettes A7 and A8 B. The specimen is received in formalin, labeled with the patient's name, ID and designated left epididymis. It consists of an irregular shaped portion of rubbery soft pink-lópez tissue measuring 5.2 x 3.0 x 1.3 cm in greatest dimension. The external surface is smooth to wrinkled. A membranous, saclike portion of tissue is present on one end. Sectioning shows a focal area of brown possible hemorrhage. Multiple merchandiser retail representative sections are submitted in cassettes B1 through B5. Additional sections are submitted in cassettes B6-7. The remainder of the specimen is submitted in cassettes B8 and B9. MICROSCOPIC DESCRIPTION [address] [facility] NAME: GUY POTTS Pathology and Laboratory Medicine UNIT#: [id number] LOC: [facility] Medical Assistant Supervisor: Paulina Hightower M.D. ROOM/BED: [employer] : 72 AGE/SEX: 49/M ORD.Gutierrez Concepcion MD CONTINUED ON NEXT PAGE Patient: GUY POTTS Unit#: [id number] (continued) SPECIMEN: [id number] COPIES TO: Arabella Bates CNP, Steven E. MD Signed Verified/Reviewed by DARLENE GARY D.O. 04/22/20 This dictation was created using voice recognition software. Phonetic and/or minor grammatical errors may exist. [facility] NAME: GUY POTTS Pathology and Laboratory Medicine UNIT#: [id number] LOC: [facility] Medical Assistant Supervisor: Paulina Hightower M.D. ROOM/BED: [employer] : 72 AGE/SEX: 49/M ORD.Gutierrez Concepcion MD END OF REPORT Normal [facility] [place] Encounters Encounter Date Encounter Type Care Provider Facility Start: 05-15-2024 End: 05-15-2024 [facility] TAVO BRULE Randall [facility] Start: 05-06-2024 End: 05-06-[address] [facility] Start: 04-08-2024 End: 04-08-[address] [facility] Start: 03-28-2024 End: 03-28-[address] [facility] Start: 03-12-2024 End: 03-12-2024 [facility] Start: 03-07-2024 End: 03-07-[address] [facility] Start: 03-05-2024 End: 03-05-[address] [facility] Start: 03-05-2024 End: 03-05-[address] [facility] Start: 03-02-2024 End: 03-02-[address] [facility] Start: 03-01-2024 End: 03-01-2024 ambulatory [facility] Start: 02-29-2024 End: 02-29-2024 ambulatory [facility] Start: 02-29-2024 End: 02-29-2024 Emergency department patient visit ARABELLA BATES [facility] Start: 02-28-2024 End: 02-28-2024 ambulatory [facility] Start: 02-12-2024 End: 02-12-2024 ambulatory [facility] Start: 01-15-2024 End: 01-15-[address] [facility] Start: 12-29-2023 End: 12-29-2023 ambulatory [facility] Start: 12-29-2023 End: 12-29-2023 Encounter for general adult medical examination without abnormal findings ARABELLA BATES [facility] Start: 06-26-2023 End: 06-26-2023 ambulatory SUKHWINDER BARNEY [facility] Start: 06-13-2023 ambulatory SELF SELF Facility:[facility] Procedures Date Procedure Procedure Detail Performing Clinician Start: 05-06-2024 Urinalysis ARABELLA Hernández Comment on above: Result Comment: URIN ALYSIS Performed By: #### 2 [id number] #### [place] [id number] Start: 12-29-2023 PSA screening ARABELLA OWUSU Comment on above: Performed By: #### 2 [id number] ####[place] [id number] Payers Date Payer Category Payer Unknown [id number] 2.16.8 [id number] 1970 Unknown [id number] 2.16.8 [id number] 1970 Unknown [id number] 2.16.8 40.1.060174.3.579.2.651 1971 Unknown [id number] 2.16.8 40.1.566985.3.579.2.651 1971 Unknown [id number] 2.16.8 40.1.650875.3.579.2.651 1971 Unknown [id number] 2.16.8 40.1.647481.3.579.2.651 1971 Unknown [id number] 2.16.8 40.1.482996.3.579.2.651 1971 Unknown [id number] 2.16.8 40.1.320746.3.579.2.651 1971 Unknown [id number] 2.16.8 40.1.501330.3.579.2.651 1971 Unknown [id number] 2.16.8 40.1.832961.3.579.2.651 1971 Unknown [id number] 2.16.8 40.1.010095.3.579.2.651 1971 Unknown [id number] 2.16.8 40.1.653792.3.579.2.651 1971 Unknown [id number] 2.16.8 40.1.351891.3.579.2.651 1971 Unknown [id number] 2.16.8 40.1.451304.3.579.2.651 1971 Unknown [id number] 2.16.8 40.1.697075.3.579.2.651 1971 Unknown [id number] 2.16.8 40.1.934689.3.579.2.651 1971 Unknown [id number] 2.16.8 40.1.199667.3.579.2.651 Unknown [id number] Clinical Note 05-06-2024 Note Date & Type Note Facility 05-06-2024 Note [facility] CONSULTATION REPORT NAME ACCOUNT SEX AGE ADMIT DISCHARGE PT MED. RECORD# NUMBER DATE DATE TYPE GUY POTTS [id number] M 53 05/06/2024 2 [id number] ROOM: [facility] DATE OF : 1970 DICTATING PHYSICIAN: Monique Rea DATE OF CONSULTATION: May 06, 2024 REASON FOR CONSULTATION: Abdominal pain. HISTORY OF PRESENT ILLNESS: Guy Potts is a 53-year-old gentleman who started with abdominal pain yesterday and came to the emergency room during the night. The pain is localized in the right lower quadrant. When asked to localize the pain, he holds his hand over McBurney's point. The pain is worsened with movement. He is anorexic. His last oral intake was some water or coffee at about 2:30 this morning. His last oral food intake was yesterday. The pain worsened, and he came to the emergency room complaining of pain about 8 out of 10 in severity. Here in the emergency room, he was found to have a temperature initially of approximately 98.7 and repeat was 98.4, pulse when I examined him was approximately 110 to 120, respiratory rate 18 to 20, and blood pressure most recently was 136/80, and oxygen saturation 90 to 94% on room air. Weight is 211 pounds with BMI of 29.43 kg/m2. Here in the emergency room, he was found to have pain in the right lower quadrant. He had a white blood cell count of 14,900, hemoglobin 15.3. Differential showed 86.4% neutrophils, 7.0% lymphocytes. Sodium is 141, potassium 4.0, creatinine 1.17, and glucose 151. Liver panel is unremarkable. CT scan was obtained and initial report by Devonte showed a thickened appendix 10 mm wide with an appendicolith and some inflammatory change around this. No evidence of an abscess, free air, or free fluid. I explained the findings to the patient. I explained the possibility of appendicitis versus other etiology. I have explained the risk of not doing the surgery including spreading infection, abscess formation, and leakage. I have explained the surgery itself carries with it risks such as bleeding, pain, infection, scarring, damage to surrounding tissues. I have explained the surgery is done under anesthesia, and I have explained laparoscopic versus the possibility of conversion to open incision. I have explained possible drain placement. I have explained possible removal of a normal appendix. I have explained the postoperative instructions, restrictions, activities, diet, medications, and follow-up plan. The patient appears to understand, his spouse is present and appears to understand. They wish to proceed as outlined and wish to proceed with surgery. I have explained that we would try to work them in when we have an opening. In the meantime, I have ordered antibiotics and IV fluid. PAST MEDICAL HISTORY: (1) No rheumatic heart disease, murmurs, arrhythmias, seizures, bleeding diathesis, or anesthetic problems. (2) History of asthma. (3) Page 1 of 3 GUY POTTS [place] Report GUY POTTS : 1970 History of hypertension, treated medically. (4) GERD. (5) Distant history of peptic ulcer disease, details not available. PAST SURGICAL HISTORY: See old chart. CURRENT MEDICATIONS: He takes albuterol, amlodipine, atorvastatin, Claritin, fluoxetine, fluticasone, losartan, magnesium oxide, multivitamins, pantoprazole, vitamin E, vitamin D3, and potassium chloride supplements. ALLERGIES: Codeine changes his personality. He also states he is allergic to shrimp. SOCIAL HISTORY: The patient is . He has one child. He works as a national flatbed truck driver. Smoking: Denied. Ethanol: Denied. REVIEW OF SYSTEMS: No thyroid, kidney, liver, heart, or lung complaints. Otherwise, noncontributory. PHYSICAL EXAMINATION: GENERAL: This is a muscular gentleman alert appearing somewhat tired. SKIN: Normal texture, slightly decreased turgor. VITAL SIGNS: Per nursing notes. HEENT: EOMI, not icteric. Mucosal surfaces somewhat dry. NECK: No JVD. No thyroidectomy. CHEST: Clear. HEART: Regular rate and rhythm. No gallops, rubs or murmurs, mildly tachycardic. ABDOMEN: Soft. He has tenderness in the right lower quadrant with involuntary guarding. He has positive Rovsing's. Negative May's. No mass or hepatosplenomegaly, but the right lower quadrant is difficult to palpate because of the significant pain. He does not have any true flank tenderness. EXTREMITIES: Calves: Nontender. Fair radial upstroke. NEUROLOGIC: Neurologic examination is nonfocal. ASSESSMENT/RECOMMENDATIONS: 1. This is a generally healthy 53-year-old gentleman who now has abdominal pain mostly in the right lower quadrant. He has had anorexia and initially had some tachycardia. He has a marked leukocytosis with a left shift on differential, and he has a CT worrisome for appendicitis. I have recommended intravenous fluids, antibiotics, and going to the operating room. He appears to understand the options, the alternatives, (more content not included)... [facility] Clinical Note 06-26-2023 Note Date & Type Note Facility 06-26-2023 [facility] HISTORY & PHYSICAL NAME ACCOUNT SEX AGE ADMIT DISCHARGE PT MED. RECORD# NUMBER DATE DATE TYPE GUY POTTS [id number] M 53 06/26/23 2 [id number] ROOM: [facility] DATE OF : [birth year] DICTATING PHYSICIAN: Sukhwinder Barney CHIEF COMPLAINT: Ontiveros's esophagus. HISTORY OF PRESENT ILLNESS: Mr. 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 He denies any worrisome signs or symptoms at this time. His reflux symptoms are adequately controlled with pantoprazole 40 mg every morning. PAST MEDICAL HISTORY: Coronary artery disease, reactive airway disease, and reflux. MEDICATIONS: See MAR. ALLERGIES: Codeine. SOCIAL HISTORY: Noncontributory. REVIEW OF SYSTEMS: Ten system review of systems are negative. PHYSICAL EXAMINATION GENERAL APPEARANCE: In general, he is alert, oriented, and appropriate with no acute distress. VITAL SIGNS: On exam, he is afebrile. Vital signs stable, within normal limits. LUNGS: Lungs are clear to auscultation bilaterally. HEART: Regular rate and rhythm. ABDOMEN: Soft, nontender, and nondistended. EXTREMITIES: Extremities show no cyanosis, edema, or gross deformities. IMPRESSION: This is a 53-year-old male with Ontiveros's esophagus without dysplasia. PLAN: I discussed the risks, benefits, and alternatives of EGD with random 4 quadrant cold grasp biopsy as interval surveillance. All questions were answered, and he voiced understanding and agreement with the plan and procedure. Page 1 of 2 GUY POTTS History & Physical GUY POTTS :1970 Dictated By: Sukhwinder Barney MD 06/26/23 08:19 JOB #: [id number] Transcribed By: belinda 06/26/23 08:35 Electronically signed by: E-SIGN DR. BARNEY 06/26/23 09:39 Update to H&P: [ ] No changes: I have examined the patient and reviewed the H&P and there are no changes. [ ] As previously dictated with the following changes: PHYSICIAN SIGNATURE: TIME: DATE: Page 2 of 2 GUY POTTS History & Physical [facility] Summary Purpose Family History No Family History Records FoundNo Family History Records FoundNo Family History Records FoundNo Family History Records FoundNo Family History Records FoundNo Family History Records Found Advance Directives No Advanced Directives Records FoundNo Advanced Directives Records FoundNo Advanced Directives Records FoundNo Advanced Directives Records FoundNo Advanced Directives Records FoundNo Advanced Directives Records Found Additional Source Comments (unrecognized sect ion and content) No Status Records FoundNo Status Records FoundNo Status Records FoundNo Status Records FoundNo Status Records FoundNo Status Records Found INFORMATION SOURCE (unrecogn ized section and content) DATE CREATED AUTHOR 04/29/2020 [facility]aret [place] DATE CREATED AUTHOR AUTHOR'S ORGANIZ ATION 06/07/2021 [facility] [place] [facility] DATE CREATED AUTHOR AUTHOR'S ORGANIZ ATION 06/14/2023 [facility] DATE CREATED AUTHOR AUTHOR'S ORGANIZ ATION 07/01/2023 [facility] DATE CREATED AUTHOR AUTHOR'S ORGANIZ ATION 05/10/2024 [facility] DATE CREATED AUTHOR AUTHOR'S ORGANIZ ATION 05/21/2024 [facility] FOR RECORDS PERTAINING TO PATIENTS WHO ARE OR HAVE BEEN ENROLLED IN A CHEMICAL DEPENDENCY/SUBSTANCEABUSE PROGRAM, SOME INFORMATION MAY BE OMITTED. This clinical summary was aggregated from multiple sources. Caution should be exercised in using it in the provision of clinical care. This summary normalizes information from multiple sources, and as a consequence, information in this document may materially change the coding, format and clinical context of patient data. In addition, data may be omitted in some cases. CLINICAL DECISIONS SHOULD BE BASED ON THE PRIMARY CLINICAL RECORDS. [employer] provides no warranty or guarantee of the accuracy or completeness of information in this document.
--- NOTE | 2024-05-22 13:00 | EGD_PTH ---
PATHOLOGY RESULTS PATIENT: MARLEN THURMAN LOC: EN U#:[id number] AGE/SX: 53/M ROOM: RE05/22/[address]: Dr. Fabián Degroot DO : 1970 BED: DIS: 05/22/2024 SPEC #: [id number] RECD: 05/23/24 07:31 STATUS: SOHAM BEATRIZ #: [id number] RONNA: 05/22/24 13:[address]: Fabián Degroot DEPT: SURGICAL PATHOLOGY RECD BY: Zhang Cuellar ENTERED: 05/23/24 11:38 SP TYPE: EGD BIOPSY OT DR: Arabella Guidry, RAD[facility]-[place] Tissues: Esophagus, NOS Procedures: Surgery Specimen Level IV HEADER OPERATION: EGD biopsy PRE-OP DIAGNOSIS: GERD TISSUE SUBMITTED: Distal esophagus biopsy MICROSCOPIC DIAGNOSIS Distal esophagus, biopsy: Gastroesophageal junctional mucosa with mild chronic inflammation. Focal changes of reflux. Focal goblet cell metaplasia consistent with Ontiveros's esophagus. No evidence of dysplasia. See comment. 05/24/2024 COMMENT Immunohistochemistry ([id number]) for P53 and Ki-67 will be performed and results will be reported separately. MICROSCOPIC DESCRIPTION Slides are reviewed. GROSS DESCRIPTION Received in fixative is one container labeled with the patient's name and designated Distal esophagus biopsy. The specimen consists of multiple irregular fragments of light lópez soft tissue that in aggregate measure 1.0 x 0.3 x 0.1 cm. The specimen is totally submitted in one cassette. 05/23/2024 TC:3 CPT:87457,36502
[2024-05-22] MEDS: Ipratropium/Albuterol Sulfate 3 ML AMPUL.NEB INHALATION (13:14)
--- NOTE | 2024-05-22 13:24 | HP.PCM_ITS ---
History and Physical Date of Admission: 05/22/24 MARLEN THURMAN, is a 53 M who presents to the office today for initial consult. *BGI established 04.19.24 pt reports a history of Ontiveros's esophagus, reports last EGD was in May 2023. Pt states that since his omeprazole was lowered to 20mg a day he has had increased HB, coughing, and a raspy voice. ROS Const Constitutional: Positive for fatigue; No fever(s) or weight change ENT ENT: No difficulty swallowing Gastro GI: Positive for bloating, heartburn and excessive flatus; No abdominal pain, belching, change in bowel habits, change in stool character, coffee ground emesis, constipation, cramping, diarrhea, difficulty swallowing, feeling full early, incontinent of stools, Vomiting blood/hematemesis, Blood in stool, loose stools, Black,tarry stools, nausea/dyspepsia, pain with swallowing, vomiting or other Musc Musculoskeletal: Positive for joint pain, muscle cramps, muscle weakness and leg pain at night Skin Skin: Positive for dry skin; No yellowing of the eye or itchy eyes Psych Psychiatric: Positive for anxiety, No depression and Positive for obsessions/compulsions Endo Endocrine: Positive for fatigue; No weight change Aller/Imm Allergy/Immunologic: No itchy eyes Jose J/Lymp Hematologic/Lymphatic: No easy bleeding or easy bruising Exam Const General: cooperative and comfortable Nutritional Appearance: average body habitus and well nourished [facility] Head: normal to inspection Ears: hearing grossly normal bilaterally Nose: external nose normal Face and sinus: normal facial exam Mouth: oral mucosae normal Throat: posterior oropharynx normal Eyes General: appearance normal, both eyes and all related structures Neck Neck: normal visual inspection Chest Chest palpation & inspection: normal inspection of the chest and normal palpation of entire chest wall Resp Effort & Inspection: normal respiratory effort Auscultation: Bilateral: Clear to Auscultation Cardio Palpation: normal PMI Rate: regular rate Rhythm: regular rhythm GI Inspection: normal to inspection Auscultation: normal bowel sounds Percussion: normal to percussion Palpation: no hepatosplenomegaly Skin General: no rashes or lesions noted Neuro General: patient alert Extrem General: normal to inspection Psych Affect: normal affect Assessment and Plan Assessment and Plan (1) GERD (gastroesophageal reflux disease): Status: Acute Plan: 53-year-old gentleman with a long history of gastroesophageal reflux disease comes in after being diagnosed with Ontiveros's esophagus. He asked he does very well on PPI therapy except for the side effects of diarrhea and subsequently hypomagnesemia and hypokalemia. Patient has decreased his omeprazole down from 40 mg to 20 mg a day and he is having a lot of breakthrough. He does not know if he has a hiatal hernia or he does not know if he has been told he had a lax lower esophageal sphincter. I think he needs gastric emptying study to see why he is having refractory reflux disease and the patient does not obese and does not have a hiatal hernia. Also think he needs a Arteaga pH study to see exactly what the pH is in his supine and vertical positions and when he is eating throughout the day and when he is not eating throughout the day. We will get a biochemical workup to look for autoimmune diseases that may be contributing also to his symptoms. This Arteaga test will be done on PPI therapy. Lastly we will check him for other autoimmune diseases such as hypergastrinemia states from H. pylori, atrophic gastritis, pernicious anemia or any signs of gastric outlet obstruction from pyloric stenosis. Orders: Orders ANCA Today K21.9 - Gastro-esophageal reflux disease without esophagitis CBC W/Diff, Automated Today K21.9 - Gastro-esophageal reflux disease without esophagitis Celiac Disease Profile Today K21.9 - Gastro-esophageal reflux disease without esophagitis CRP Today K21.9 - Gastro-esophageal reflux disease without esophagitis Erythrocyte Sed Rate Today K21.9 - Gastro-esophageal reflux disease without eso phagitis Immunoglobulins G/A/M/E Today K21.9 - Gastro-esophageal reflux disease without esophagitis IBD Expanded Profile Today K21.9 - Gastro-esophageal reflux disease without esophagitis Vitamin B12 Today K21.9 - Gastro-esophageal reflux disease without esophagitis Vitamin D 1,25-Dihydroxy Today K21.9 - Gastro-esophageal reflux disease without esophagitis Gastrin, Serum Today K21.9 - Gastro-esophageal reflux disease without esophagitis Anti-Parietal Cell AB, QN Today K21.9 - Gastro-esophageal reflux disease without esophagitis Intrinsic Factor Ab Today K21.9 - Gastro-esophageal reflux disease without esophagitis JAMESON Comprehensive Panel Today K21.9 - Gastro-esophageal reflux disease without esophagitis Allergen, Food Profile 14 Today K21.9 - Gastro-esophageal reflux disease without esophagitis Chromogranin A Today K21.9 - Gastro-esophageal reflux disease without esophagitis Gastric Emptying Study Today K21.9 - Gastro-esophageal reflux disease without esophagitis Magnesium Today K21.9 - Gastro-esophageal reflux disease without esophagitis Phosphorus Today K21.9 - Gastro-esophageal reflux disease without esophagitis Urine Electrolytes- Random Today K21.9 - Gastro-esophageal reflux disease without esophagitis I have examined the patient and the H&P has been reviewed. There are no clinical changes since date of exam.
--- NOTE | 2024-05-22 13:52 | PCM.POST.ANE ---
Anesthesia: Postop Eval I Current Vital Signs Temperature: 98.4 F Pulse Rate: 84 Blood Pressure: 101/76 Respiratory Rate: 16 Pulse Ox: 93 Oxygen Delivery Method: Room Air Assessment Airway patent: Yes Spontaneous unlabored respirations: Yes Mental status: Asleep nausea: No Vomiting: No Anesthesia Complication: No Fluid Hydration Crystalloid volume administer (ml): 30 Total IV fluid infused: 30 Progress Note Anesthesia document: Postop Eval 1 completed: Yes
--- NOTE | 2024-05-22 13:54 | OP.EGD_ITS ---
Patient Name: Guy Potts Procedure Date: 05/22/2024 1:27 PM Date of : 1970 Age: 53 Procedure: Upper GI endoscopy Indications: Heartburn, Esophageal reflux, Reflux esophagitis, Ontiveros's esophagus Providers: Fabián Degroot DO Referring MD: Arabella Guidry Medicines: Monitored Anesthesia Care Patient Profile: This is a 53 year old male. Refer to note in patient chart for documentation of history and physical. Patient has symptoms of acute dyspepsia, acute heartburn, acute regurgitation and acute vomiting. Complications: No immediate complications. Procedure: Pre-Anesthesia Assessment: - Prior to the procedure, a History and Physical was performed, and patient medications and allergies were reviewed. The patient is competent. The risks and benefits of the procedure and the sedation options and risks were discussed with the patient. All questions were answered and informed consent was obtained. Patient identification and proposed procedure were verified by the physician in the pre-procedure area. Mental Status Examination: alert and oriented. Airway Examination: normal oropharyngeal airway and neck mobility. Respiratory Examination: clear to auscultation. CV Examination: normal. Prophylactic Antibiotics: The patient does not require prophylactic antibiotics. Prior Anticoagulants: The patient has taken no anticoagulant or antiplatelet agents except for NSAID medication. ASA Grade Assessment: II - A patient with mild systemic disease. After reviewing the risks and benefits, the patient was deemed in satisfactory condition to undergo the procedure. The anesthesia plan was to use monitored anesthesia care (MAC). Immediately prior to administration of medications, the patient was re-assessed for adequacy to receive sedatives. The heart rate, respiratory rate, oxygen saturations, blood pressure, adequacy of pulmonary ventilation, and response to care were monitored throughout the procedure. The physical status of the patient was re-assessed after the procedure. After obtaining informed consent, the endoscope was passed under direct vision. Throughout the procedure, the patient's blood pressure, pulse, and oxygen saturations were monitored continuously. The gastroscope was introduced through the mouth, and advanced to the second part of duodenum. The upper GI endoscopy was accomplished without difficulty. The patient tolerated the procedure well. Scope In: 1:37:37 PM Scope Out: 1:44:10 PM Total Procedure Duration Time 0 hours 6 minutes 33 seconds Findings: There were esophageal mucosal changes secondary to established short-segment Ontiveros's disease present in the lower third of the esophagus. The maximum longitudinal extent of these mucosal changes was 2 cm in length. Mucosa was biopsied with a cold forceps for histology in 3 sections at intervals of 1 cm in the lower third of the esophagus. One specimen bottle was sent to pathology. Verification of patient identification for the specimen was done. Estimated blood loss was minimal. The RUBALCAVA capsule with delivery system was introduced through the mouth and advanced into the esophagus, such that the RUBALCAVA pH capsule was positioned 40 cm from the incisors, which was 6 cm proximal to the GE junction. Suction was applied to the well of the RUBALCAVA pH capsule to suck in the adjacent mucosa of the esophagus using the external vacuum pump set at a minimum vacuum pressure of 550 mmHg for 30 seconds. The RUBALCAVA pH capsule was then deployed by depressing the plunger on top of the handle to advance the locking pin into the mucosa, thereby attaching the capsule to the esophagus. The plunger was then rotated a quarter turn clockwise to release the capsule from the delivery system. The delivery system was then withdrawn. Endoscopy was utilized for probe placement and diagnostic evaluation. Clear fluid was found in the stomach. The in the duodenum was normal. Impression: - Esophageal mucosal changes secondary to established short-segment Ontiveros's disease. Biopsied. - Clear gastric fluid. - Normal. - The RUBALCAVA pH capsule was positioned 40 cm from the incisors, which was 6 cm proximal to the GE junction. Recommendation: - Discharge patient to home. - Resume previous diet. - Continue present medications. - Await pathology results. Procedure Code(s): --- Professional --- 64902, Esophagogastroduodenoscopy, flexible, transoral; with biopsy, single or multiple CPT copyright 2021 [employer]. All rights reserved. The codes documented in this report are preliminary and upon hcc coders review may be revised to meet current compliance requirements. Fabián Degroot DO 05/22/2024 1:53:32 PM This report has been signed electronically. Number of Addenda: 0 Note Initiated On: 05/22/2024 1:27 PM
--- NOTE | 2024-05-22 13:54 | OP.CCLET_ITS ---
05/22/2024 Arabella Guidry Re : Upper GI endoscopy procedure for Guy Guidry This procedure was performed on Wednesday, May 22, 2024. My impressions and recommendations are as follows: Impressions : - Esophageal mucosal changes secondary to established short-segment Ontiveros's disease. Biopsied. - Clear gastric fluid. - Normal. - The RUBALCAVA pH capsule was positioned 40 cm from the incisors, which was 6 cm proximal to the GE junction. Recommendations : - Discharge patient to home. - Resume previous diet. - Continue present medications. - Await pathology results. My findings are described in the full procedure note, which is enclosed. If I can be of further assistance, please feel free to contact me at . Sincerely, Fabián Friend, 05/22/2024 1:53:32 PM This report has been signed electronically.
--- NOTE | 2024-05-22 16:54 | PCM.POSTANE2 ---
Anesthesia Postop Eval I Sum Postop Eval Completion status Anesthesia document: Postop Eval 1 completed: Yes Anesthesia Postop Eval I Summary Anesthesia Postop Eval I Summary: Anesthesia Postop Eval I: Assessment Summary Airway patent Yes 05/22/24 13:53 [email or web address] Spontaneous unlabored Yes 05/22/24 13:53 [email or web address] respirations Mental status Asleep 05/22/24 13:53 [email or web address] nausea No 05/22/24 13:53 [email or web address] Vomiting No 05/22/24 13:53 [email or web address] Anesthesia Postop Eval I: Fluid Summary Crystalloid volume administer 30 05/22/24 13:53 [email or web address] (ml) Colloids volume administered ( ml) Blood Product volume administered (ml) Total IV fluid infused 30 05/22/24 13:53 [email or web address] Anesthesia Postop Eval I: Summary Notes Anesthesia Complication No 05/22/24 13:53 [email or web address] Anesthesia Complication Comment: Post-operative progress note Anesthesia: Postop Eval II Evaluation Mental status: Awake and Calm Pain Level: 0 nausea: No Vomiting: No Complications Anesthesia Complication: No
== END 2024-05-22 14:26 | disposition home or self-care (01) ==
LOC: EN 11:58 → AC 11:59
PROVIDERS: PCP Nurse Practitioner Family; Referring Provider Nurse Practitioner Family; Visit Provider Internal Medicine Gastroenterology
PROC: (CPT 43235; principal; 2024-05-22 12:55)
DX: K21.00 Gastro-esophageal reflux disease with esophagitis, without bleeding (principal); K22.70 Barrett's esophagus without dysplasia; J45.909 Unspecified asthma, uncomplicated; I10 Essential (primary) hypertension; Z79.51 Long term (current) use of inhaled steroids; Z79.899 Other long term (current) drug therapy; Z86.16 Personal history of COVID-19
CPT/HCPCS: 43239; 88305; 88341; 88342; 94640; J2405

== ENCOUNTER → 2024-05-27 | Outpatient (CLI) | payer OTHER, SELFPAY ==
--- NOTE | 2024-05-27 08:37 | NM_ITS ---
CLINICAL: 54-year-old male with history of gastroesophageal reflux disease. SEMI-SOLID PHASE 99m Tc SULFUR COLLOID GASTRIC EMPTYING STUDY COMPARISON: None available FINDINGS: The patient was administered 1.1 mCi of 99m Tc sulfur colloid mixed with oatmeal and consumed per os. Image acquisitions in the anterior-posterior projections were obtained for 60 minutes. There is prompt visualization of the stomach. There is no gastroesophageal reflux identified. The T ? linear fit was calculated to be 38.86 minutes, (Normal: 12-56 minutes). NM/Gastric Emptying Study IMPRESSION: 1. NORMAL 99m Tc sulfur colloid semi-solid phase (oatmeal) gastric emptying imaging examination. A. There is normal and preserved semi-solid phase gastric emptying compared to normal controls. (Crissy et al, J Nucl Med Tech 38: 186, 2010). Electronically Signed: Chico Torres DO at 9:30 EDT ,
== END | disposition home or self-care (01) ==
LOC: NM 08:36
PROVIDERS: PCP Nurse Practitioner Family; Referring Provider Internal Medicine Gastroenterology; Visit Provider Internal Medicine Gastroenterology
DX: K21.9 Gastro-esophageal reflux disease without esophagitis (principal)
CPT/HCPCS: 78264; A9541